=== PATIENT | female | born 1990 | race Caucasian/White ===

== ENCOUNTER 2020-01-03 05:13 | Inpatient (IN) ==
--- NOTE | 2020-01-03 05:34 | Obstetrical Progress Note ---
Date of Service January 03, 2020 Subjective Observation Note 29 F P0000 at 40.1 weeks seen in L&D to rule out labor. FHT Cat 1. Cervix finger tip. GBS is negative. Covid is negative. Will observe for labor.
[2020-01-03] MEDS ORDERED: OXYTOCIN 30 UNITS/500 ML BAG IV PRN ×2 (06:26→18:25)
--- NOTE | 2020-01-03 06:32 | Obstetrical Progress Note ---
Date of Service January 03, 2020 Subjective Admit Note 29 F P0000 at 40.1 weeks admitted in early labor. Cervix now 3/100/- 2/vertex/membranes intact. GBS is negative. Covid at 38 weeks negative. FHT Cat 1. Will admit in labor. Results & Data ([facility]) Vital Signs (Past 12 Hours) Vital Signs Temp Pulse Resp BP 01/03/20 05:24 36.7 C 74 18 131/85
[2020-01-03 06:53] LABS: Hematocrit (blood only) 35.5 % (37-47); Hemoglobin 12.1 g/dL (12.0-16.0); Mean Corpuscular Hemoglobin 29.7 pg (25-34); Mean Platelet Volume 10.7 fL (7.4-10.4); Platelet Count 181 K/uL (130-400); RDW Coefficient of Variation 13.2 % (11.5-14.5); RDW Standard Deviation 41.9 fL (36.4-46.3); Red Blood Count 4.08 M/uL (4.2-5.4); White Blood Count 14.24 K/uL (4.8-10.8)
[2020-01-03 07:44] LABS: Mean Corpuscular Hgb Conc 34.1 g/dL (32-36)
[2020-01-03] MEDS: LACTATED RINGER'S 1,000 ML IV PRN ×3 (09:59→12:53)
--- NOTE | 2020-01-03 10:13 | Obstetrical Progress Note ---
Date of Service January 03, 2020 Assessment & Plan Admission and Anticipated Discharge Date Admission Date: January 03, 2020 Subjective Pt doing well FHR; CAT1 Ctx 3-4min VE; 3/100/-2 Pt wants epidural analgesia does not want Pitocin started now wants to rest - because she has not slept in 2 days Results & Data ([facility]) Vital Signs (Past 12 Hours) Vital Signs Temp Pulse Resp BP 01/03/20 07:31 18 01/03/20 07:23 36.7 C 20 01/03/20 07:06 74 152/82 H 01/03/20 07:05 36.7 C 01/03/20 05:24 36.7 C 74 18 131/85
[2020-01-03] MEDS ORDERED: ePHEDrine sulfate 50 MG/ML AMP ONE (10:26)
[2020-01-03] MEDS ORDERED: fentaNYL citrate 100 MCG/2 ML VIAL ONE (10:26)
[2020-01-03] MEDS ORDERED: BUPIVACAINE 0.25% 30 ML VIAL ONE (10:26)
[2020-01-03] MEDS ORDERED: fentaNYL 2MCG/ML ROPIVACAINE 1.25MG/ML 100 ML BAG EPI ONE (10:26)
--- NOTE | 2020-01-03 10:59 | Anesthesiology Consultation ---
Date of Service January 03, 2020 Assessment & Plan (1) Encounter for pre-operative examination: Chart Review Chart Review: Acceptable Risk for Labor Epidural Consults Requested none ASA ASA2 Proposed Anesthesia Anesthesia Type: Labor Epidural Risk / Benefits Reviewed With: PT / POA / Parent / Guardian, Accepts Plan and Informed Consent Obtained History Height/Weight Height: 5 ft 4 in Weight: 75.296 kg Allergies Allergy/AdvReac Type Severity Reaction Status Date / Time No Known Allergies Allergy Verified 01/03/20 05:38 Medications Home Medications Medication Instructions Recorded Confirmed Last Taken vit no.[id number]-xxomf 1 tab PO DAILY 01/03/20 01/03/20 01/02/20 18:00 [ Vitamin] Active Medications Generic Name Dose Route Start Last Admin Trade Name Freq PRN Reason Stop Dose Admin Lactated Ringer's 1,000 mls @ 125 mls/hr 01/03/20 06:26 01/03/20 10:54 Lr IV 01/05/20 06:25 999 mls/hr .Q8H PRN Administration L&D Protocol Protocol NPO Date Last Intake of Fluids: 01/03/20 Time Last Intake of Fluids: 10:56 Date Last Intake of Solids: 01/02/20 Time Last Intake of Solids: 22:00 Exercise / Class Metabolic Activity II 4-5 Yardwork/Stairs/Walk up hill Negative for chest pain or shortness of breath. Past Surgical History Surgical History [place] teeth removed Past Anesthesia History No Hx of Anesthesia Complications History of PONV No Hx of PONV Social History Smoking Status: Never smoker Do You Dip or Chew Tobacco: No Hx Alcohol Use: No Hx Substance Use: No Review of Systems Negative for chest pain or shortness of breath. Patient denies numbness, tingling or weakness in lower extremities. Patient denies history of abnormal bleeding or bleeding disorder. Patient denies active use of anticoagulants other than low dose aspirin. Physical Exam Vital Signs Last Vital Signs Temp 36.7 C 01/03/20 07:23 Pulse 76 01/03/20 10:42 Resp 20 01/03/20 10:30 BP 144/80 H 01/03/20 10:42 Constitutional not obese (gravid uterus) ENMT Mouth: no TMJ abnormality and oral opening not small Thyromental Distance: > or= 3.5 Finger Breadths Mallampati Class: II Neck normal visual inspection; neck extension not limited Respiratory normal respiratory effort Auscultation: lungs clear to auscultation bilaterally Cardiovascular Rate/Rhythm: regular rate and regular rhythm Heart Sounds: no murmur Neurologic moves all extremities Psychiatric Orientation: alert and oriented x 3 Testing Laboratory Results 01/03/20 06:38
[2020-01-03] MEDS ORDERED: ONDANSETRON INJ 2 MG/ML 2 ML VIAL IV PRN (11:59)
[2020-01-03] MEDS ORDERED: ePHEDrine sulfate 50 MG/ML AMP IV PRN (11:59)
[2020-01-03] MEDS ORDERED: fentaNYL 2MCG/ML ROPIVACAINE 1.25MG/ML 100 ML BAG EPI PRN (11:59)
[2020-01-03] MEDS ORDERED: diphenhydrAMINE 50 MG/ML VIAL IV PRN (11:59)
[2020-01-03] MEDS ORDERED: NALOXONE HCL 0.4 MG/1 ML VIAL/CARP IV PRN (11:59)
[2020-01-03] MEDS ORDERED: NALOXONE HCL 1 MG in SODIUM CHLORIDE 0.9% 1000ML 1,000 ML IV PRN (11:59)
[2020-01-03] MEDS ORDERED: miSOPROStoL 200 MCG TAB ONE (18:15)
[2020-01-03] MEDS ORDERED: HYDROCORTISONE ACETATE 25 MG SUPP PR PRN (18:25)
[2020-01-03] MEDS ORDERED: BENZOCAINE 20% AER SPR 82.5 GM CAN EXT PRN (18:25)
[2020-01-03] MEDS ORDERED: bisacodyL 10 MG SUPP PR PRN (18:25)
[2020-01-03] MEDS ORDERED: miSOPROStoL 200 MCG TAB PR ONE (18:25)
[2020-01-03] MEDS ORDERED: SUPERCREAM 0.870% 15 GM JAR EXT PRN (18:25)
[2020-01-03] MEDS ORDERED: ACETAMINOPHEN 325 MG TAB PO PRN (18:25)
[2020-01-03] MEDS ORDERED: DIPHTHERIA/TETANUS/PERTUSSIS 0.5 ML SYR/VIAL IM ONE (18:30)
--- NOTE | 2020-01-03 18:55 | Anesthesia Procedure Note ---
Date of Service January 03, 2020 Anesthesia Post Epidural Note Vital Signs Vital Signs: Temp Pulse Resp BP Pulse Ox 36.8 C 71 20 126/89 99 01/03/20 16:30 01/03/20 18:53 01/03/20 17:00 01/03/20 18:53 01/03/20 18:31 Notes Mental Status: alert / awake / arousable and participated in evaluation Nausea / Vomiting: adequately controlled Pain: adequately controlled Airway Patency, RR, SpO2: stable & adequate BP & HR: stable & adequate Hydration State: stable & adequate Neuraxial Anesthesia: was administered and sensory block is resolving Anesthetic Complications: no major complications apparent and Pt Satisfied with anesthetic care Epidural: Removed without complications and With tip intact Notes: Epidural site clean, dry and intact. No signs of edema, erythema or bruising at insertion site. Pt instructed to request anesthesia if she has residual lower extremity numbness or if she develops lower extremity pain or weakness, back pain or headache.
--- NOTE | 2020-01-03 20:50 | Delivery Summary ---
DATE OF OPERATION: 01/03/2020 The patient delivered a live infant male in occiput anterior presentation, was loose nuchal cord which was easily reduced. Delayed cord clamp was performed after 1 minute. Cord blood was obtained. Placenta spontaneously delivered. Inspection of the placenta shows a succenturiate looking placenta. This was suspected for ultrasound during the . Inspection of the perineum showed a second-degree midline laceration with a left labia tear, this all repaired in layers with 2-0 Vicryl and 3-0 Vicryl respectively. Rectal exam post repair showed good sphincter tone. No sutures are palpated in the rectum. Estimated blood loss is 450 mL. Baby and mother are doing well in recovery. All instruments were removed from the vagina and accounted for including sponges, needles, laps and retractors. I attest to the content of the Intraoperative Record and any orders documented therein. Any exceptions are noted below. MARTINAD
[2020-01-03] MEDS: DOCUSATE SODIUM 100 MG CAP PO SCH (21:43)
[2020-01-04] MEDS: IBUPROFEN 600 MG TAB PO PRN ×3 (03:38→16:24)
[2020-01-04 06:36] LABS: Hemoglobin 10.6 g/dL (12.0-16.0); Mean Corpuscular Hemoglobin 29.1 pg (25-34); Mean Corpuscular Hgb Conc 33.1 g/dL (32-36); Mean Corpuscular Volume 87.9 fL (80-100); Mean Platelet Volume 10.4 fL (7.4-10.4); Platelet Count 161 K/uL (130-400); RDW Coefficient of Variation 13.2 % (11.5-14.5); RDW Standard Deviation 42.4 fL (36.4-46.3); Red Blood Count 3.64 M/uL (4.2-5.4); White Blood Count 14.87 K/uL (4.8-10.8)
--- NOTE | 2020-01-04 09:00 | Obstetrical Progress Note ---
Date of Service January 04, 2020 Assessment & Plan (1) Normal course: PPD #1 pt doing well' no complaints anticipate disch tomorrow Subjective Ambulation: ambulating normally Voiding: no voiding problems Passing Gas:: Yes Diet Tolerance:: regular diet Lochia:: Small Feeding Type:: breast feeding Review of Systems All systems reviewed & are unremarkable except as noted in HPI & below Physical Exam Constitutional WD/WN, vitals as above well developed and well nourished Eyes PERRL, conjunctivae normal, anicteric sclerae Neck trachea midline, no thyromegaly Respiratory normal respiratory effort, lungs clear to auscultation Auscultation: no crackles, no rales and no wheezes Cardiovascular RRR, no murmur, no edema Gastrointestinal (Abdomen) normal bowel sounds, soft, nontender, no hepatosplenomegaly Uterus is below umbilicus Musculoskeletal no cyanosis or clubbing, extremities motor strength 5/5 Skin no rashes, warm and dry Neurologic patellar DTR's 2+ bilat, sensation intact Psychiatric A+Ox3, euthymic affect Genitourinary normal external appearance Results & Data ([facility]) Vital Signs (Past 12 Hours) Vital Signs Temp Pulse Resp BP 01/04/20 03:40 37 C 71 16 130/83 01/04/20 00:35 37 C 66 18 108/69 01/03/20 22:15 37 C 80 16 142/86 H
[2020-01-04] MEDS: PRENATAL VITAMIN 1 TAB PO SCH (09:41)
[2020-01-04] MEDS: FERROUS SULFATE 325 MG TAB PO SCH (09:41)
[2020-01-04] MEDS: DOCUSATE SODIUM 100 MG CAP PO SCH ×2 (09:41→20:32)
[2020-01-04] MEDS ORDERED: bisacodyL 5 MG TABEC PO SCH (20:00)
[2020-01-05 06:26] LABS: Hematocrit (blood only) 30.8 % (37-47); Hemoglobin 10.4 g/dL (12.0-16.0)
[2020-01-05] MEDS: PRENATAL VITAMIN 1 TAB PO SCH (09:22)
[2020-01-05] MEDS: FERROUS SULFATE 325 MG TAB PO SCH (09:22)
[2020-01-05] MEDS: DOCUSATE SODIUM 100 MG CAP PO SCH (09:23)
--- NOTE | 2020-01-05 09:23 | Obstetrical Progress Note ---
Date of Service January 05, 2020 Assessment & Plan Admission and Anticipated Discharge Date Admission Date: January 03, 2020 Subjective PPD#2 doing well tolerating diet ambulating well Physical Exam Constitutional: WD/WN, vitals as above comfortable abdomen soft and non- tender fundus firm no edema neg Dickson's for d/c Results & Data ([facility]) Vital Signs (Past 12 Hours) Vital Signs Temp Pulse Resp BP Pulse Ox 01/04/20 23:35 36.6 C 70 18 124/81 98 Laboratory Results Laboratory Results - last 72 hr 01/03/20 01/03/20 01/04/20 06:38 08:10 06:05 WBC 14.24 H 14.87 H RBC 4.08 L 3.64 L Hgb 12.1 10.6 L Hct 35.5 L 32.0 L MCV 87.0 87.9 MCH 29.7 29.1 MCHC 34.1 33.1 RDW Std Deviation 41.9 42.4 RDW Coeff of Sirena 13.2 13.2 Plt Count 181 161 MPV 10.7 H 10.4 SARS-CoV-2, RNA, NAAT NEGATIVE 01/05/20 05:55 WBC RBC Hgb 10.4 L Hct 30.8 L MCV MCH MCHC RDW Std Deviation RDW Coeff of Sirena Plt Count MPV SARS-CoV-2, RNA, NAAT
== END 2020-01-05 15:30 | disposition home or self-care (01) | DRG 807 ==
LOC: OPB 05:13 → 4S1 05:20 → 4S2 21:34

== ENCOUNTER 2023-02-02 00:32 | Inpatient (IN) ==
[2023-02-02] MEDS ORDERED: OXYTOCIN 30 UNITS/NSS 30 UNITS/500 ML BAG IV PRN ×2 (01:57→06:28)
[2023-02-02] MEDS ORDERED: LIDOCAINE 1% LOCAL 20 ML VIAL INFIL PRN (01:57)
[2023-02-02] MEDS ORDERED: PENICILLIN G POTASSIUM 6 MU in DEXTROSE 5% 250 ML IV STA (01:57)
[2023-02-02] MEDS: LACTATED RINGER'S 1,000 ML IV PRN ×2 (02:07→04:27)
--- NOTE | 2023-02-02 02:36 | History & Physical Report ---
Date of Service February 02, 2023 Assessment & Plan (1) : Plan Admit start antibiotics History of Present Illness Chief Complaint: onset of labor Primary Care Provider: Pablo Saravia MD 32 F P1001 at 39.4 weeks presents to L&D in labor. GBS is positive. Covid is positive from home test. Allergies Allergy/AdvReac Type Severity Reaction Status Date / Time No Known Allergies Allergy Verified 01/03/20 05:38 Home Medications Medication Instructions Recorded Confirmed Type vits no.124-ferrous fum 1 tab PO DAILY 01/03/20 02/02/23 History 27 mg iron-folic acid 800 mcg tablet ( Vitamin) Zafar-600 1 cap PO DAILY 02/02/23 02/02/23 History Patient History Medical History Scoliosis Surgical History [place] teeth removed Social History Smoking Status: Never smoker Second Hand Exposure: No; Do You Dip or Chew Tobacco: No; Hx Alcohol Use: No Hx Substance Use: No Preferred Language: Burmese Communication Ability: Effective 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 Review of Systems All systems reviewed & are unremarkable except as noted in HPI & below Physical Exam Constitutional: WD/WN, vitals as above Eyes: PERRL, conjunctivae normal, anicteric sclerae Respiratory: normal respiratory effort, lungs clear to auscultation Cardiovascular: RRR, no murmur, no edema Musculoskeletal: Extremities: extremities normal to inspection Skin: no rashes, warm and dry Neurologic: patellar DTR's 2+ bilat, sensation intact Psychiatric: A+Ox3, euthymic affect Genitourinary: Manual OB Exam: + cervical dilation 3 cm and 4 cm, + cervical effacement 70% and + station -2 OB Exam Monitor Tracing: + external FHT monitor used, + external uterine monitor used, + category I and + normal FHT variability Results & Data Vital Signs (Past 12 Hours) Vital Signs Temp Pulse Resp BP 02/02/23 01:02 37.0 C 18 02/02/23 00:55 37.0 C 77 18 119/80 Monitoring External Monitor Cat 1 (1) Weeks of gestation: 39 weeks Qualified Code(s): Z3A.39 - 39 weeks gestation of
[2023-02-02 03:16] LABS: Hematocrit (blood only) 35.8 % (37.0-47.0); Hemoglobin 12.4 g/dl (12.0-16.0); Mean Corpuscular Hemoglobin 29.7 pg (25.0-34.0); Mean Corpuscular Hgb Conc 34.6 g/dL (32.0-36.0); Mean Corpuscular Volume 85.6 fL (80.0-100.0); Mean Platelet Volume 10.8 fL (9.4-12.4); Platelet Count 167 K/uL (130-400); RDW Coefficient of Variation 12.7 % (11.5-14.5); RDW Standard Deviation 39.5 fL (36.4-46.3); Red Blood Count 4.18 M/uL (4.20-5.40); White Blood Count 11.05 K/ul (4.8-10.8)
[2023-02-02] MEDS ORDERED: ePHEDrine sulfate 50 MG/ML AMP ONE (03:21)
[2023-02-02] MEDS ORDERED: SODIUM CHLORIDE 0.9% PF INJ 10 ML VIAL ONE (03:21)
[2023-02-02] MEDS ORDERED: fentaNYL citrate PF 100 MCG/2 ML VIAL ONE (03:21)
[2023-02-02] MEDS ORDERED: LIDOCAINE 2%/EPINEPHRINE 1:200,000 20 ML PF ONE (03:22)
[2023-02-02] MEDS ORDERED: fentANYL 2 MCG/ML BUPIVacaine 0.125%-NSS 100ML BAG ONE (03:22)
[2023-02-02] MEDS ORDERED: BUPIVACAINE 0.25% PF 30 ML VIAL ONE (03:22)
[2023-02-02 04:01] LABS: Influenza A virus by PCR Negative (Neg); Influenza B virus by PCR Negative (Neg); RSV by PCR Negative (Neg)
[2023-02-02 04:14] LABS: SARS CoV2 RNA(COVID-19) Ceph POSITIVE (Negative)
[2023-02-02] MEDS ORDERED: NALOXONE HCL 0.4 MG/1 ML VIAL/CARP IV PRN (04:14)
[2023-02-02] MEDS ORDERED: BUPIVACAINE 0.25% PF 30 ML VIAL EPI PRN (04:14)
[2023-02-02] MEDS ORDERED: fentaNYL citrate PF 100 MCG/2 ML VIAL EPI PRN (04:14)
[2023-02-02] MEDS ORDERED: diphenhydrAMINE 50 MG/ML VIAL IV PRN (04:14)
[2023-02-02] MEDS ORDERED: BUPIVACAINE 0.25% PF 30 ML VIAL EPI STA (04:14)
[2023-02-02] MEDS ORDERED: NALOXONE HCL 1 MG in SODIUM CHLORIDE 0.9% 1,000 ML IV PRN (04:14)
[2023-02-02] MEDS ORDERED: ePHEDrine sulfate 50 MG/ML AMP IV PRN (04:14)
[2023-02-02] MEDS ORDERED: NALBUPHINE HCL 5 MG in SYRINGE 0 ML IV PRN (04:14)
[2023-02-02] MEDS ORDERED: fentaNYL citrate PF 100 MCG/2 ML VIAL EPI STA (04:14)
[2023-02-02] MEDS ORDERED: ONDANSETRON INJ 2 MG/ML 2 ML VIAL IV PRN (04:14)
[2023-02-02] MEDS ORDERED: SODIUM CHLORIDE 0.9% PF INJ 10 ML VIAL EPI PRN (04:14)
[2023-02-02] MEDS ORDERED: fentANYL 2 MCG/ML BUPIVacaine 0.125%-NSS 100ML BAG EPI PRN (04:14)
[2023-02-02] MEDS ORDERED: LIDOCAINE 2%/EPINEPHRINE 1:200,000 20 ML PF EPI STA (04:14)
[2023-02-02] MEDS ORDERED: SODIUM CHLORIDE 0.9% PF INJ 10 ML VIAL EPI STA (04:14)
[2023-02-02] MEDS ORDERED: ROPIVACAINE 0.5% PF 5 MG/ML 20 ML VIAL EPI PRN (04:14)
[2023-02-02] MEDS ORDERED: LIDOCAINE 2% MPF LOCAL 5 ML VIAL EPI PRN (04:14)
--- NOTE | 2023-02-02 04:14 | Anesthesiology Consultation ---
Date of Service February 02, 2023 Assessment & Plan ASA ASA2 Proposed Anesthesia Anesthesia Type: Labor Epidural Risk / Benefits Reviewed With: PT / POA / Parent / Guardian, Accepts Plan and Informed Consent Obtained History Height/Weight Height: 5 ft 4.5 in Weight: 75.3 kg Allergies Allergy/AdvReac Type Severity Reaction Status Date / Time No Known Allergies Allergy Verified 01/03/20 05:38 Medications Home Medications Medication Instructions Recorded Confirmed Last Taken vits no.124-ferrous fum 1 tab PO DAILY 01/03/20 02/02/23 02/01/23 10:00 27 mg iron-folic acid 800 mcg tablet ( Vitamin) Zafar-600 1 cap PO DAILY 02/02/23 02/02/23 02/01/23 10:00 Active Medications Generic Name Dose Route Start Last Admin Trade Name Freq PRN Reason Stop Dose Admin Fentanyl/Bupivacaine/Sodium Chlor 100 ml 02/02/23 04:14 02/02/23 04:39 Fentanyl 2 Mcg/Ml Bupivacaine 0.125%-Nss 100ml Bag EPI 02/03/23 04:13 100 ml PRN PRN Administration Pain R/T Labor Protocol Lactated Ringer's 1,000 mls @ 125 mls/hr 02/02/23 01:57 02/02/23 04:27 Lr IV 02/04/23 01:56 125 mls/hr .Q8H PRN Administration L&D Protocol Protocol Past Medical History Medical History Scoliosis Exercise / Class Metabolic Activity II 4-5 Yardwork/Stairs/Walk up hill Past Surgical History Surgical History [place] teeth removed Past Anesthesia History No Hx of Anesthesia Complications and No Family Hx of Anesthesia Complications History of PONV No Hx of PONV and No Hx of Motion Sickness Social History Smoking Status: Never smoker Do You Dip or Chew Tobacco: No Hx Alcohol Use: No Hx Substance Use: No Review of Systems denies fever/cough/ colds/ chest pain/ SOB/ MELISSA denies MELISSA Physical Exam Vital Signs Last Vital Signs Temp 37.0 C 02/02/23 01:02 Pulse 85 02/02/23 04:46 Resp 18 02/02/23 01:02 BP 114/75 02/02/23 04:46 Pulse Ox 98 02/02/23 04:43 ENMT Mouth: no TMJ abnormality and no dentition abnormality Thyromental Distance: > or= 3.5 Finger Breadths Mallampati Class: II Neck neck extension not limited Respiratory normal respiratory effort; no respiratory distress Auscultation: lungs clear to auscultation bilaterally Cardiovascular Rate/Rhythm: regular rate and regular rhythm Neurologic moves all extremities Psychiatric Orientation: alert and oriented x 3 Testing Laboratory Results 02/02/23 02:43
[2023-02-02] MEDS ORDERED: PENICILLIN G POTASSIUM 3 MU in DEXTROSE 5% 100 ML IV PRN (04:57)
[2023-02-02] MEDS ORDERED: HYDROCORTISONE ACETATE 25 MG SUPP PR PRN (06:28)
[2023-02-02] MEDS ORDERED: IBUPROFEN 600 MG TAB PO PRN (06:28)
[2023-02-02] MEDS ORDERED: DIPHTHERIA/TETANUS/PERTUSSIS Vaccine (Tdap, Age 7+yrs) 0.5mL SYR/VL IM ONE (06:28)
[2023-02-02] MEDS ORDERED: BENZOCAINE 20% SPRY 85 APPLN/85 GM CAN EXT PRN (06:28)
[2023-02-02] MEDS ORDERED: ACETAMINOPHEN 325 MG TAB PO PRN (06:28)
[2023-02-02] MEDS ORDERED: bisacodyL 10 MG SUPP PR PRN (06:28)
--- NOTE | 2023-02-02 06:31 | Delivery Summary ---
Vaginal Delivery Summary Date of Service February 02, 2023 Vaginal Delivery Summary live female NACHO over intact perineum with delayed cord clamping and Apgars 8/9 weight pending. Cord blood obtained followed by spontaneous delivery of intact placenta. Small first degree tear repaired with 3/0 Vicryl suture. EBL 100 ml. Final sponge, needle and instrument count are correct. Mom and baby stable.
[2023-02-02] MEDS ORDERED: PRENATAL VITAMIN 1 TAB PO SCH (08:00)
--- NOTE | 2023-02-02 08:27 | Anesthesia Procedure Note ---
Date of Service February 02, 2023 Anesthesia Post Epidural Note Vital Signs Vital Signs: Temp Pulse Resp BP Pulse Ox 98.2 F 72 18 115/67 95 02/02/23 04:55 02/02/23 08:26 02/02/23 04:55 02/02/23 08:26 02/02/23 06:38 Notes Mental Status: alert / awake / arousable and participated in evaluation Nausea / Vomiting: adequately controlled Pain: adequately controlled Airway Patency, RR, SpO2: stable & adequate BP & HR: stable & adequate Hydration State: stable & adequate Neuraxial Anesthesia: was administered and sensory block is resolving Anesthetic Complications: no major complications apparent and Pt Satisfied with anesthetic care Epidural: Removed without complications and With tip intact
[2023-02-02] MEDS: DOCUSATE SODIUM 100 MG CAP PO SCH ×2 (08:36→21:18)
[2023-02-02] MEDS: PRENATAL VITAMIN 1 TAB PO SCH (08:36)
[2023-02-02] MEDS: FERROUS SULFATE 325 MG TAB PO SCH (08:36)
[2023-02-02] MEDS: CALCIUM CARBONATE 1250MG TAB PO SCH (08:36)
[2023-02-03 06:16] LABS: Hematocrit (blood only) 31.8 % (37.0-47.0); Mean Corpuscular Hemoglobin 30.1 pg (25.0-34.0); Mean Corpuscular Hgb Conc 34.6 g/dL (32.0-36.0); Mean Corpuscular Volume 86.9 fL (80.0-100.0); Mean Platelet Volume 10.6 fL (9.4-12.4); Platelet Count 153 K/uL (130-400); RDW Coefficient of Variation 12.6 % (11.5-14.5); Red Blood Count 3.66 M/uL (4.20-5.40); White Blood Count 9.53 K/ul (4.8-10.8)
[2023-02-03] MEDS: PRENATAL VITAMIN 1 TAB PO SCH (08:17)
[2023-02-03] MEDS: DOCUSATE SODIUM 100 MG CAP PO SCH (08:17)
[2023-02-03] MEDS: FERROUS SULFATE 325 MG TAB PO SCH (08:17)
[2023-02-03] MEDS: CALCIUM CARBONATE 1250MG TAB PO SCH (08:17)
--- NOTE | 2023-02-03 08:30 | Obstetrical Progress Note ---
Date of Service February 03, 2023 Assessment & Plan Admission and Anticipated Discharge Date Admission Date: February 02, 2023 Subjective Patient is seen and examined. She feels well, no complaints. Ambulating without dizziness Voiding without difficulty Tolerating regular diet with out N&V Bleeding is minimal No fever/ chills/ CP/ SOB/ N&V/ Leg pain Mild COVID symptoms, declines meds Breast feeding without problems Vital Signs Temp Pulse Resp BP Pulse Ox O2 Del Method 02/03/23 03:40 36.6 C 67 18 111/86 95 Room Air 02/03/23 00:25 36.6 C 78 20 127/86 96 Room Air 02/02/23 21:40 Room Air 02/02/23 21:40 36.9 C 71 18 122/84 97 Room Air 02/02/23 14:30 36.7 C 76 18 123/83 96 Room Air 02/02/23 09:45 36.4 C L 67 18 125/86 99 Room Air Intake and Output 02/02/23 02/03/23 02/03/23 22:59 06:59 14:59 Intake Total 1000 / 1500 Balance 1000 / 1400 Intake: IV 1000 / 1500 Lactated Ringer's 1,000 ml @ 1000 / 1000 125 mls/hr IV .Q8H PRN Rx#: [id number] Lab Results 02/02/23 02/02/23 02/03/23 Range/Units 02:43 03:12 05:30 WBC 11.05 H 9.53 (4.8-10.8) K/ul RBC 4.18 L 3.66 L (4.20-5.40) M/uL Hgb 12.4 11.0 L (12.0-16.0) g/dl Hct 35.8 L 31.8 L (37.0-47.0) % MCV 85.6 86.9 (80.0-100.0) fL MCH 29.7 30.1 (25.0-34.0) pg MCHC 34.6 34.6 (32.0-36.0) g/dL RDW Std Deviation 39.5 40.0 (36.4-46.3) fL RDW Coeff of Sirena 12.7 12.6 (11.5-14.5) % Plt Count 167 153 (130-400) K/uL MPV 10.8 10.6 (9.4-12.4) fL SARS-CoV-2 (PCR) POSITIVE A* (Negative) Influenza Type A (PCR) Negative (Neg) Influenza Type B (PCR) Negative (Neg) RSV (RT-PCR) Negative (Neg) PE: General: Alert, orientedx3, NAD Abd: soft, NT, fundus firm, below Umbilicus Perineum intact, Lochia rubra minimal Ext; NT, no edema AP: 32 yo s/p , ppd# 1 VSS Afebrile doing well Continue routine care Desires d/c today All questions were answered D/C home , f/u in office Results & Data Vital Signs (Past 12 Hours) Vital Signs Temp Pulse Resp BP Pulse Ox O2 Del Method 02/03/23 03:40 36.6 C 67 18 111/86 95 Room Air 02/03/23 00:25 36.6 C 78 20 127/86 96 Room Air 02/02/23 21:40 Room Air 02/02/23 21:40 36.9 C 71 18 122/84 97 Room Air
--- OUTSIDE RECORDS SUMMARY | 2023-02-03 18:04 | External Medical Summary | Summary of Care ---
Author Name Unknown Organization [facility] Address [address] [place] [address] Phone [phone] Care Team Providers Care Business Services Administrator Name Role Phone Froilan Christianson DO Primary Care Provider [phone] Reason for Visit * Reason Comments Return Visit Encounter Details Date Type Department Care Team (Latest Contact Info) Description 01/22/2023 11:30 AM EST Office Visit Gynecology/Obstetric s [facility] [address] [place] [address] Elva Fox PA-C [address] [place] [address] Normal in third trimester*; Family history of congenital anomaly; Marginal insertion of umbilical cord affecting management of mother; 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 0 Active documented as of this encounter (statuses as of 01/22/2023) Active Problems Problem Noted Date Diagnosed Date Carrier of group B Streptococcus 01/10/2023 Marginal insertion of umbili roel cord affecting management of mother 09/18/2022 Overview: 3rd trimester growth US Normal 06/26/2022 Family history of congenital anomaly 06/26/2022 Overview: Son cleft lip Rosacea 05/01/2022 Dyslipidemia 01/09/2022 Estimated Date of Delivery Comme nts Yes 02/05/2023 Based on last me nstrual period of 05/01/2022 (Exact Date) documented as of this encounter (statuses as of 01/22/2023) Resolved Problems Problem Noted Date Diagnosed Date Resolved Date Low-lying placenta 09/21/2022 3 Placenta succenturiata, unspecified trimester 09/05/19 20 02/10/2020 Overview: 10/17/19 ultrasound IMPRESSION 1. Normal MIKE. 2. Vertex presentation. 3. Probable succenturiate lobe of the placenta 09/05/19 ultrasound "It is uncertain if placenta is bilobed with thin band of tissue connecting the anterior and fundal placental tissue versus succenturiate placenta." Encounter for supervision of normal 08/22/1902/10/2020 Last Assessment & Plan: Tdap given today 10/17/2019 Sandra Chadwick LPN documented as of this encounter (statuses as of 01/22/2023) Immunizations Name Administration Dates Next Due COVID-19 mRNA, LNP-s, No Pre serve, 2-Dose Series (Moderna) 07/20/2020,06/22/2020 COVID-19, mRNA, LNP-s, PF, B ooster, 100mcg/0.5mg (Moderna) 03/22/2021 SEASONAL INFLUENZA, PF, 6 M & Above, IM , (FLULAVAL or FLUZONE) 01/08/2023,01/09/2022,01/02/2018 Seasonal Influenza, Quadriva lent, No Preserve, IM 12/19/2019 TDAP (age 10 and older)(Boostrix) 11/21/2022, documented as of this encounter Social History Tobacco Use Types Packs/Day Years Used Date Smoking Tobacco: Never Smokeless Tobacco: Never Alcohol Use Standard Drinks/Week Comments Yes 0 (1 standard drink = 0.6 oz pur e alcohol) social drinker PHQ-2 Answer Date Recorded PHQ-2 Score 0 01/30/2019 Hunger Vital Sign Answer Date Recorded Within the past 12 months, y ou worried that your food would run out before you got the money to buy more. Never true 06/27/19 23 Within the past 12 months, t he food you bought just didn't last and you didn't have money to get more. Never true 06/26/2022 Mcgill Depression Scale Answer Date Recorded Mcgill Depression Scale Total 1 12/22/2022 The thought of harming myself has occurred to me . Never 12/22/2022 Estimated Date of Delivery Comme nts Yes 02/05/2023 Based on last me nstrual period of 05/01/2022 (Exact Date) Sex and Gender Information Value Date Recorded Sex Assigned at Female 06/26/2022 10:10 AM EDT Gender Identity Female 06/26/2022 10:10 AM EDT Sexual Orientation Straight 06/26/2022 10 :10 AM EDT Job Start Date Occupation Industry Not on file Not on file Not on file documented as of this encounter Last Filed Vital Signs Vital Sign Reading Time Taken Comments Blood Pressure 100/60 01/22/2023 11:18 AM EST Pulse - - Temperature - - Respiratory Rate - - Oxygen Saturation - - Inhaled Oxygen Concentration - - Weight 76.4 kg (168 lb 6.4 oz) 01/22/2023 11:18 AM EST Height 163.8 cm (5' 4.5") 01/22/2023 11:18 AM ES T Body Mass Index 28.46 01/22/2023 11:18 AM EST documented in this encounter Progress Notes * Elva Fox PA-C - 01/22/2023 11:51 AM EST 38w0d Doing well. Had maybe 1 contractions while sleep a few nights ago. Otherwise nothing since. Denies bleeding, leaking. Baby is moving well. Reviewed IOL for postdates, pt would like time to decide. Labor precautions reviewed. RTC in 1 weeks Elva Fox PA-C * Adrianne Walters LPN - 01/22/2023 11:22 AM EST 38w0d Pt denies any concerns documented in this encounter Plan of Treatment Upcoming Encounters Date Type Department Care Team (Late st Contact Info) Description 01/30/2023 8:45 AM EST Office Visit Gynecology/Obstetrics [facility] [address] [place] [address] Melvin Santamaria MD [address] [place] [phone] 02/05/2023 9:15 AM EST Office Visit Gynecology/Obstetrics [facility] [address] [place] [address] Elva Fox PA-C [address] [place] [address] Health Maintenance Due Date Last Done Comments Hepatitis B (1 of 3 - 3-dose series) 1989 HPV/Co-Test 08/04/2019 Depression Screening 01/31/2020 01/30/2019 COVID-19 Vaccine ( season) 2022 03/22/2021, 07/20/2020, 06/22/2020 Cervical Cancer Screening 09/02/2024 Pap Smear 09/02/2024 09/02/2021, 01/17, 01/01/2017 DTaP,Tdap,and Td Vaccines (3 - Td or Tdap) 11/21/2032 11/21/2022, 10/17/2019 Influenza Vaccine (FLU shot) Completed , 01/09/2022, 12/19/2019, Additional history exists GARDASIL-HPV IMMUNIZATION SERIES Aged Out No longer eligible based on patient's age to complete this topic MENINGOCOCCAL (MENACTRA/MENVEO) Aged Out No longer eligible based on patient's age to complete this topic Pneumococcal Vaccine: Pediatrics (0 to 5 Years) and At-Risk Patients (6 to 64 Years) Aged Out No longer eligible based on patient's age to complete this topic documented as of this encounter Medical Devices Not on filedocumented as of this encounter Visit Diagnoses Diagnosis Normal in third trimester- Primary Family history of congenital anomaly Family history of congenital anomalies Marginal insertion of umbilical cord affecting management of mother Carrier of group B Streptococcus Carrier or suspected carrier of Group B streptococcus documented in this encounter Care Teams Business Services Administrator Relationship Specialty Start Date End Date Froilan Christianson DO PCP - General Family Medicine 05/02/22 documented as of this encounter
--- OUTSIDE RECORDS SUMMARY | 2023-02-03 18:04 | External Medical Summary | Summary of Care ---
Author Name Unknown Organization [facility] Address [address] [facility] [place] [address] Phone [phone] Care Team Providers Care Blood Tester Name Role Phone Froilan Christianson DO Primary Care Provider [phone] Reason for Visit * Reason Onset Date Comments Forms Request 12/01/2022 Encounter Details Date Type Department Care Team Description 12/01/2022 Telephone [facility] [address] [place] [address] Emma Deras CRNP [address] [place] [address] Forms Request Allergies No known active allergiesdocumented as of this encounter (statuses as of 12/01/2022) Medications Medication Sig Dispensed Refills Start Date End Date Status Vitamin/Min +DHA 27-0.8-200 MG Oral Capsule Take by mouth. 0 Active documented as of this encounter (statuses as of 12/01/2022) Active Problems Problem Noted Date Marginal insertion of umbilical cord aff ecting management of mother 09/18/2022 Overview: 3rd trimester growth US Normal 06/26/2022 Family history of congenital anomaly 12/2022 Overview: Son cleft lip Rosacea 05/01/2022 Dyslipidemia 01/09/2022 Estimated Date of Delivery Comme nts Yes 02/05/2023 Based on last me nstrual period of 05/01/2022 (Exact Date) documented as of this encounter (statuses as of 12/01/2022) Resolved Problems Problem Noted Date Resolved Date Low-lying placenta 09/21/2022 10/20/2022 Placenta succenturiata, unspecified trimester 02/10/2020 Overview: 10/17/19 ultrasound IMPRESSION 1. Normal MIKE. 2. Vertex presentation. 3. Probable succenturiate lobe of the placenta 09/05/19 ultrasound "It is uncertain if placenta is bilobed with thin band of tissue connecting the anterior and fundal placental tissue versus succenturiate placenta." Encounter for supervision of normal 02/10/2020 Last Assessment & Plan: Tdap given today 10/17/2019 Sandra Chadwick LPN documented as of this encounter (statuses as of 12/01/2022) Immunizations Name Administration Dates Next Due COVID-19 mRNA, LNP-s, No Pre serve, 2-Dose Series (Moderna) 07/20/2020,06/22/2020 COVID-19, mRNA, LNP-s, PF, B ooster, 100mcg/0.5mg (Moderna) 03/22/2021 Seasonal Influenza, PF, 6 mo ns & Above, IM , (Flulaval) 01/09/2022,01/02/2018 Seasonal Influenza, Quadrivalent, No Preserve, I M 12/19/2019 TDAP (age 10 and older)(Boostrix) 11/21/2022, documented as of this encounter Social History Tobacco Use Types Packs/Day Years Used Date Smoking Tobacco: Never Smokeless Tobacco: Never Alcohol Use Standard Drinks/Week Comments Yes 0 (1 standard drink = 0.6 oz pur e alcohol) social drinker Food Insecurity Answer Date Recorded Within the past 12 months, y ou worried that your food would run out before you got money to buy more. Never true 06/26/2022 Within the past 12 months, t he food you bought just didn't last and you didn't have money to get more. Never true 06/26/2022 Estimated Date of Delivery Comme nts Yes 02/05/2023 Based on last me nstrual period of 05/01/2022 (Exact Date) Sex Assigned at Date Recorded Female 06/26/2022 10:10 AM EDT Job Start Date Occupation Industry Not on file Not on file Not on file documented as of this encounter Miscellaneous Notes * Telephone Encounter - Libia Brumfield LPN - 12/01/2022 9:19 AM EDT FMLA complete. Originals in triage. documented in this encounter Plan of Treatment Upcoming Encounters Date Type Specialty Care Team Description 12/06/2022 Imaging Radiology 12/06/2022 Office Visit Gynecology Obstetrics Elva Fox PA-C [address] [place] [address] Health Maintenance Due Date Last Done Comments Hepatitis B (1 of 3 - 3-dose series) 1989 HPV/Co-Test 08/04/2019 Depression Screening 01/31/2020 01/30/2019 COVID-19 Vaccine (4 - Moderna series) 05/17/2021 03/22/2021, 07/20/2020, 06/22/2020 Influenza Vaccine (FLU shot) (#1) 2022 01/09/2022, 12/19/2019, 01/02/2018, Additional history exists Cervical Cancer Screening 09/02/2024 Pap Smear 09/02/2024 09/02/2021, 01/17, 01/01/2017 DTaP,Tdap,and Td Vaccines (3 - Td or Tdap) 11/21/2032 11/21/2022, 10/17/2019 Hepatitis C Screening Completed 06/26/2022 , 06/26/2022, 06/26/2022 GARDASIL-HPV IMMUNIZATION SERIES Aged Out No longer [...] Not on filedocumented as of this encounter Care Teams Blood Tester Relationship Specialty Start Date End Date Froilan Christianson DO [address] [place] [address] PCP - General Family Medicine 05/02/22 documented as of this encounter
--- OUTSIDE RECORDS SUMMARY | 2023-02-03 18:04 | External Medical Summary | Summary of Care ---
Author Name Unknown Organization [facility] Address [address] [facility] [place] [address] Phone [phone] Care Team Providers Care Sleeper Cutter Name Role Phone Froilan Christianson DO Primary Care Provider Reason for Visit * Reason Onset Date Comments Return Visit Medication Administration 01/08/2023 Flu an d/or Pneumo Inj Encounter Details Date Type Department Care Team (Late st Contact Info) Description 01/08/2023 10:15 AM EDT Office Visit [facility]necology/[facility]st[facility] [address] [place] [address] Emma Deras CRNP [address] [place] [address] Normal in third trimester*; Marginal insertion of umbilical cord affecting management of mother; Family history of congenital anomaly; Need for prophylactic vaccination and inoculation against influenza Allergies No known active allergiesdocumented as of this encounter (statuses as of 01/08/2023) Medications Medication Sig Dispensed Refills Start Date End Date Status Vitamin/Min +DHA 27-0.8-200 MG Oral Capsule Take by mouth. 0 Active documented as of this encounter (statuses as of 01/08/2023) Active Problems Problem Noted Date Diagnosed Date Marginal insertion of umbili roel cord affecting management of mother 09/18/2022 Overview: 3rd trimester growth US Normal 06/26/2022 Family history of congenital anomaly 06/26/2022 Overview: Son cleft lip Rosacea 05/01/2022 Dyslipidemia 01/09/2022 Estimated Date of Delivery Comme nts Yes 02/05/2023 Based on last me nstrual period of 05/01/2022 (Exact Date) documented as of this encounter (statuses as of 01/08/2023) Resolved Problems Problem Noted Date Diagnosed Date Resolved Date Low-lying placenta 09/21/2022 Placenta succenturiata, unspecified trimester 09/05/19 20 02/10/2020 [...] as of this encounter (statuses as of 01/08/2023) Immunizations Name Administration Dates Next Due COVID-19 [...] money to buy more. Never true 06/27/19 Within the past 12 months, t he food you bought just didn't last and you didn't have money to get more. Never true 06/26/2022 [place] Depression Scale Answer Date Recorded [place] Depression Scale Total 1 12/22/2022 The thought [...] Reading Time Taken Comments Blood Pressure 100/60 01/08/2023 10:09 AM EDT Pulse - - Temperature - - Respiratory Rate - - Oxygen Saturation - - Inhaled Oxygen Concentration - - Weight 74.9 kg (165 lb 3.2 oz) 01/08/2023 10:09 AM EDT Height 163.8 cm (5' 4.5") 01/08/2023 10:09 AM ED T Body Mass Index 27.92 01/08/2023 10:09 AM EDT documented in this encounter Progress Notes * EMILE Rodriguez - 01/08/2023 10:31 AM EDT 36w Noticing some swelling in hands, some pain in hands over the weekend. No other concerns. Baby is active. No contractions, bleeding, or LOF. Flu vaccine today. GBS done. Rustic Fence Builder Documentation Provider requested funds transfer clerk. Name of funds transfer clerk: EMILE Chamorro * Adrianne Walters LPN - 01/08/2023 10:15 AM EDT 36w0d Pt has noticed increase swelling in hands/feet, soreness in hands. GBS today. Desires flu shot today. documented in this encounter Nursing Notes * Ardianne Walters LPN - 01/08/2023 10:34 AM EDT Patient here for flu injection. Patient doing well no complaints. Injection given IM as ordered. Patient tolerated well. Patient to follow up as directed. Patient instructed to call if any complications. Patient verbalized understanding of instructions given. Injection site: Left Deltoid Medication Source: Dispensed stock medication documented in this encounter Plan of Treatment Upcoming Encounters Date Type Department Care Team (Late st Contact Info) Description 01/15/2023 10:15 AM EDT Office Visit Gynecology/Obstetrics [facility] [address] [place] [address] Emma Deras CRNP [address] [place] [address] 01/22/2023 11:30 AM EST Office Visit Gynecology/Obstetrics [facility] [address] [place] [address] Elva Fox PA-C [address] [place] [address] 01/30/2023 8:45 AM EST Office Visit Gynecology/Obstetrics [facility] [address] [place] [address] Melvin Santamaria MD [address] [place] [address] 02/05/2023 9:15 AM EST Office Visit Gynecology/Obstetrics [facility] [address] [place] [address] Elva Fox PA-C [address] [place] [address] Pending Results Name Type Priority Associated Diagnoses Date /Time GROUP B STREP CULTURE/PCR Lab Routine Normal in third trimester 01/08/2023 10:34 AM EDT Health Maintenance Due Date Last Done Comments [...] Diagnoses Diagnosis Normal in third trimester- Primary Marginal insertion of umbilical cord affecting management of mother Family history of congenital anomaly Family history of congenital anomalies Need for prophylactic vaccination and inoculation against influenza documented in this encounter Care Teams Sleeper Cutter Relationship Specialty Start Date End Date Froilan Christianson DO [address] [place] [address] PCP - General Family Medicine 05/02/22 documented as of this encounter
--- OUTSIDE RECORDS SUMMARY | 2023-02-03 18:04 | External Medical Summary | Summary of Care ---
Author Name Unknown Organization [facility] Address [address] [facility] [address] [place] [address] Phone [phone] Care Team Providers Care Sr. Consultant Name Role Phone Froilan Christianson DO Primary Care Provider [phone] Reason for Visit * Reason Comments Return Visit Encounter Details Date Type Department Care Team (Latest Contact Info) Description 01/15/2023 10:15 AM EDT Office Visit Gynecology/Obstetric s [facility] [address] [place] [address] Emma Deras CRNP [address] [place] [address] Normal in third trimester*; Family history of congenital anomaly; Marginal insertion of umbilical cord affecting management of mother; Carrier of group B Streptococcus Allergies No known active allergiesdocumented as of this encounter (statuses as of 01/15/2023) Medications Medication Sig Dispensed Refills Start Date End Date Status Vitamin/Min +DHA 27-0.8-200 MG Oral Capsule Take by mouth. 0 Active documented as of this encounter (statuses as of 01/15/2023) Active Problems Problem Noted Date Diagnosed Date [...] as of this encounter (statuses as of 01/15/2023) Resolved Problems Problem Noted Date Diagnosed Date [...] as of this encounter (statuses as of 01/15/2023) Immunizations Name Administration Dates Next Due COVID-19 [...] money to get more. Never true 06/26/2022 [place] Depression Scale Answer Date Recorded [place] Depression Scale Total 1 12/22/2022 The thought [...] Sign Reading Time Taken Comments Blood Pressure 100/58 01/15/2023 10:20 AM EDT Pulse - - Temperature - - Respiratory Rate - - Oxygen Saturation - - Inhaled Oxygen Concentration - - Weight 75.8 kg (167 lb) 01/15/2023 10:20 AM EDT Height 163.8 cm (5' 4.5") 01/15/2023 10:20 AM ED T Body Mass Index 28.22 01/15/2023 10:20 AM EDT documented in this encounter Progress Notes * Emma Deras CRNP - 01/15/2023 10:49 AM EDT 37w No concerns. Still with some swelling in hands. Baby is moving well. No contractions, bleeding, or LOF. EMILE Rodriguez * Adrianne Walters LPN - 01/15/2023 10:24 AM EDT 37w0d Pt denies any concerns. documented in this encounter Plan of Treatment Upcoming Encounters Date Type Department Care Team (Late st Contact Info) Description 01/22/2023 11:30 AM EST [facility] [address] [place] [address] Elva Fox PA-C [address] [place] [address] 01/30/2023 8:45 AM EST Office Visit Gynecology/Obstetrics [facility] [address] [place] [address] Melvin Santamaria MD [address] [place] [address] 02/05/2023 9:15 AM EST Office Visit Gynecology/Obstetrics [facility] [address] [place] [address] Elva Fox PA-C [address] [place] [address] Health Maintenance Due Date Last Done Comments [...] streptococcus documented in this encounter Care Teams Sr. Consultant Relationship Specialty Start Date End Date Froilan Christianson DO [address] [place] [address] PCP - General Family Medicine 05/02/22 documented as of this encounter
--- OUTSIDE RECORDS SUMMARY | 2023-02-03 18:04 | External Medical Summary ---
Author Name Unknown Address Unknown Organization K01:[facility] - [address] [facility] [address] Laboratory Report Ordering Provider Test Date Status JOHANA MCGINNIS 01/08/2023 10:34:06 Correction Observation Date Value Abnormality Reference (Units ) Status Streptococcus agalactiae DNA [Presence] in Specimen by FALLON with probe detection 01/08/2023 10:34:06 Positive Abnormal Negative Correction Group B Streptococcus detect ed by culture-enhanced PCR (amplified probe).

The collection of vaginal/rectal swab specimen combinations (FDA approved specimen type) is optimal for the detection of Group B Streptococcus. Single source collection (vaginal only or rectal only) or alternate specimen sources may lead to false negative results. Performing Location [facility] [place] - [address] [facility] [facility] [address]
--- OUTSIDE RECORDS SUMMARY | 2023-02-03 18:04 | External Medical Summary | Summary of Care ---
Author Name Unknown Organization [facility] Address [address] [facility] [place] [address] Phone [phone] Care Team Providers Care Protective Signal Repairer Name Role Phone Froilan Christianson DO Primary Care Provider [phone] Encounter Details Date Type Department Care Team (Late st Contact Info) Description 01/29/2023 Telephone Gynecology/Obstetrics [facility] [address] [place] [address] Jacob Leblanc MD [address] [place] [address] Allergies No known active allergiesdocumented as of this encounter (statuses as of 01/29/2023) Medications Medication Sig Dispensed Refills Start Date End Date Status Vitamin/Min +DHA 27-0.8-200 MG Oral Capsule Take by mouth. 0 Active documented as of this encounter (statuses as of 01/29/2023) Active Problems Problem Noted Date Diagnosed Date [...] as of this encounter (statuses as of 01/29/2023) Resolved Problems Problem Noted Date Diagnosed Date Resolved Date Low-lying placenta 09/21/2022 Placenta succenturiata, unspecified trimester 09/05/1902/10/2020 Overview: 10/17/19 ultrasound IMPRESSION 1. Normal MIKE. [...] as of this encounter (statuses as of 01/29/2023) Immunizations Name Administration Dates Next Due COVID-19 [...] money to get more. Never true 06/26/2022 [place] Depression Scale Answer Date Recorded [place] Depression Scale Total 1 12/22/2022 The thought [...] encounter Miscellaneous Notes * Telephone Encounter - Keturah Hinkle LPN - 01/29/2023 10:25 AM EST Pt calling in stating she got a + covid test today. States symptoms started last night. Only havingnasal drip. Denies fevers/chills. Reviewed with Nika for recommendation for coming into office. Advised bacause 39 weeks she would need to be seen. Advised pt to wear a mask, come alone, and to call when here so she can be brought back to a room. Pt verbalized understanding. Sending to [facility] avis SERRANO documented in this encounter Plan of Treatment Upcoming Encounters Date Type Department Care Team (Late st Contact Info) Description 01/30/2023 8:45 AM EST Office Visit Gynecology/Obstetrics [facility] [address] [place] [address] Melvin Santamaria MD [address] [place] [address] 02/05/2023 9:15 AM EST Office Visit Gynecology/Obstetrics [facility] [address] [place] [address] Elva Fox PA-C [address] [place] [address] Health Maintenance Due Date Last Done Comments [...] filedocumented as of this encounter Care Teams Protective Signal Repairer Relationship Specialty Start Date End Date Froilan Christianson DO PCP - General Family Medicine 05/02/22 documented as of this encounter
--- OUTSIDE RECORDS SUMMARY | 2023-02-03 18:04 | External Medical Summary | Summary of Care ---
Author Name Unknown Organization [facility] Address [address] [facility] [place] [address] Phone [phone] Care Team Providers Care Refinery Operator Assistant Name Role Phone Froilan Christianson DO Primary Care Provider [phone] Reason for Visit * Reason Onset Date Comments Forms Request 12/01/2022 Encounter Details Date Type Department Care Team Description 12/01/2022 Telephone [facility] [address] [place] [address] Emma Deras CRNP [address] [place] [address] Forms Request Allergies No known active allergiesdocumented [...] Fox PA-C [address] [place] [address] Health Maintenance Due Date Last Done Comments [...] filedocumented as of this encounter Care Teams Refinery Operator Assistant Relationship Specialty Start Date End Date Froilan Christianson DO [address] [place] [address] PCP - General Family Medicine 05/02/22 documented as of this encounter
--- OUTSIDE RECORDS SUMMARY | 2023-02-03 18:04 | External Medical Summary | Summary of Care ---
Author Name Unknown Organization [facility] Address [address] [facility] [place] [address] Phone [phone] Care Team Providers Care Sheet Metal Roofer Name Role Phone Froilan Christianson DO Primary Care Provider [phone] Reason for Visit * Reason Comments Outpatient Testing Encounter Details Date Type Department Care Team Description 11/21/2022 Laboratory Laboratory, [facility] [address] [facility] [place] [address] [facility] [address] [place] [address] Normal in second trimester Allergies No known active allergiesdocumented as of this encounter (statuses as of 11/21/2022) Medications Medication Sig Dispensed Refills Start Date End Date Status Vitamin/Min +DHA 27-0.8-200 MG Oral Capsule Take by mouth. 0 Active documented as of this encounter (statuses as of 11/21/2022) Active Problems Problem Noted Date Marginal insertion of umbilical cord aff ecting management of mother 09/18/2022 Overview: 3rd trimester growth US Normal 06/26/2022 Family history of congenital anomaly 12/2022 Overview: Son cleft lip Rosacea 05/01/2022 Dyslipidemia 01/09/2022 Estimated Date of Delivery Comme nts Yes 02/05/2023 Based on last me nstrual period of 05/01/2022 (Exact Date) documented as of this encounter (statuses as of 11/21/2022) Resolved Problems Problem Noted Date Resolved Date [...] as of this encounter (statuses as of 11/21/2022) Immunizations Name Administration Dates Next Due COVID-19 mRNA, LNP-s, No Pre serve, 2-Dose Series (Moderna) 07/20/2020,06/22/2020 Covid-19 Mrna, Lnp-s, No Preserve, Booster (Mode rna) 03/22/2021 Seasonal Influenza, PF, 6 mo ns [...] on file documented as of this encounter Plan of Treatment Upcoming Encounters Date Type Specialty Care Team Description 12/06/2022 Imaging Radiology 12/06/2022 Office Visit Gynecology Obstetrics Elva Fox PA-C [address] [place] [address] Pending Results Name Type Priority Associated Diagnoses Date /Time SYPHILIS ANTIBODY SCREEN WITH REFLEX TO RPR Lab Routine Normal in second trimester 11/21/2022 10:07 AM EDT CBC WITH WBC DIFFERENTIAL AND ANEMIA REFLEX WORKUP Lab Routine Normal in second trimester 11/21/2022 10:07 AM EDT 50-G GESTATIONAL GLUCOSE, 1 HOUR Lab Routine Normal in second trimester 11/21/2022 10:07 AM EDT SYPHILIS ANTIBODY SCREEN Lab Routine Normal in second trimester 11/21/2022 10:07 AM EDT ANEMIA CBC Lab Routine Normal in second trimester 11/21/2022 10:07 AM EDT DIFFERENTIAL, AUTOMATED Lab Routine Normal in second trimester 11/21/2022 10:07 AM EDT ANEMIA REFLEX CHEMISTRY HOLD Lab Routine Normal in second trimester 11/21/2022 10:07 AM EDT Health Maintenance Due Date Last Done Comments Hepatitis B (1 of 3 - 3-dose series) 1990 HPV/Co-Test 08/04/2019 Depression Screening, Annual for Pts 12 and Over 01/31/2020 01/30/2019 COVID-19 Vaccine (4 - Moderna [...] this encounter Visit Diagnoses Diagnosis Normal in second trimester documented in this encounter Care Teams Sheet Metal Roofer Relationship Specialty Start Date End Date Froilan Christianson DO [address] [place] [address] PCP - General Family Medicine 05/02/22 documented as of this encounter
--- OUTSIDE RECORDS SUMMARY | 2023-02-03 18:04 | External Medical Summary | Summary of Care ---
Author Name Unknown Organization [facility] Address [address] [facility] [place] [address] Phone [phone] Care Team Providers Care Power Plant Inspector Name Role Phone Unavailable Primary Care Provider Unavailabl e Reason for Visit * Reason Comments Return Visit Encounter Details Date Type Department Care Team (Latest Contact Info) Description 01/30/2023 4:00 PM EST Office Visit Gynecology/Obstetric s [facility] [address] [place] [address] Melvin Santamaria MD [address] [place] [address] Normal in third trimester*; Family history of congenital anomaly; Marginal insertion of umbilical cord affecting management of mother; Carrier of group B Streptococcus Allergies No known active allergiesdocumented as of this encounter (statuses as of 01/30/2023) Medications Medication Sig Dispensed Refills Start Date End Date Status Vitamin/Min +DHA 27-0.8-200 MG Oral Capsule Take by mouth. 0 Active documented as of this encounter (statuses as of 01/30/2023) Active Problems Problem Noted Date Diagnosed Date [...] as of this encounter (statuses as of 01/30/2023) Resolved Problems Problem Noted Date Diagnosed Date Resolved Date Low-lying placenta 09/21/2022 3 Placenta succenturiata, unspecified trimester 09/05/1902/10/2020 Overview: 10/17/19 [...] as of this encounter (statuses as of 01/30/2023) Immunizations Name Administration Dates Next Due COVID-19 [...] money to get more. Never true 06/26/2022 [place] Depression Scale Answer Date Recorded [place] Depression Scale Total 1 12/22/2022 The thought [...] Sign Reading Time Taken Comments Blood Pressure 104/72 01/30/2023 3:54 PM EST Pulse - - Temperature - - Respiratory Rate - - Oxygen Saturation - - Inhaled Oxygen Concentration - - Weight 75.3 kg (166 lb) 01/30/2023 3:54 PM EST Height 163.8 cm (5' 4.5") 01/30/2023 3:54 PM EST Body Mass Index 28.05 01/30/2023 3:54 PM EST documented in this encounter Progress Notes * Melvin Santamaria MD - 01/30/2023 4:21 PM EST Pt doing well +ve COVID on 01/29/23 Symptoms started 01/28/23 [facility] for induction VE; Ft/post * Melvin Santamaria MD - 01/30/2023 4:07 PM EST Pt doing well +ve COVID dx 01/29/23 Symptoms started 02/27/23 [facility] for induction documented in this encounter Nursing Notes * Rafaela Santana LPN - 01/30/2023 3:57 PM EST 39w1d Covid + yesterday, doing okay. Had + home test. Agreeable to scheduling IOL. documented in this encounter Plan of Treatment Upcoming Encounters Date Type Department Care Team (Late st Contact Info) Description 02/05/2023 9:15 AM EST Office Visit Gynecology/Obstetrics [facility] [address] [place] [address] Elva Fox PA-C [address] [place] [address] Health Maintenance Due Date Last Done Comments [...]
--- OUTSIDE RECORDS SUMMARY | 2023-02-03 18:04 | External Medical Summary | Summary of Care ---
Author Name Unknown Organization [facility] Address [address] [facility] [place] [address] Phone [phone] Care Team Providers Care Research Associate Policy Name Role Phone Froilan Christianson DO Primary Care Provider Reason for Visit * Reason Comments Return Visit Encounter Details Date Type Department Care Team Description 12/22/2022 [facility] [address] [place] [address] Elva Fox PA-C [address] [place] [address] 33 weeks gestation of *; Normal in third trimester; Marginal insertion of umbilical cord affecting management of mother; Family history of congenital anomaly Allergies No known active allergiesdocumented as of this encounter (statuses as of 12/22/2022) Medications Medication Sig Dispensed Refills Start Date End Date Status Vitamin/Min +DHA 27-0.8-200 MG Oral Capsule Take by mouth. 0 Active documented as of this encounter (statuses as of 12/22/2022) Active Problems Problem Noted Date Marginal insertion of umbilical cord aff ecting management of mother 09/18/2022 Overview: 3rd trimester growth US Normal 06/26/2022 Family history of congenital anomaly 12/2022 Overview: Son cleft lip Rosacea 05/01/2022 Dyslipidemia 01/09/2022 Estimated Date of Delivery Comme nts Yes 02/05/2023 Based on last me nstrual period of 05/01/2022 (Exact Date) documented as of this encounter (statuses as of 12/22/2022) Resolved Problems Problem Noted Date Resolved Date [...] as of this encounter (statuses as of 12/22/2022) Immunizations Name Administration Dates Next Due COVID-19 mRNA, LNP-s, No Pre serve, 2-Dose Series (Moderna) 07/20/2020,06/22/2020 COVID-19, mRNA, LNP-s, PF, B ooster, 100mcg/0.5mg (Moderna) 03/22/2021 SEASONAL INFLUENZA, PF, 6 M & Above, IM , (FLULAVAL or FLUZONE) 01/09/2022,01/02/2018 Seasonal Influenza, Quadrivalent, No Preserve, I [...] Sign Reading Time Taken Comments Blood Pressure 84/54 12/22/2022 8:58 AM EDT Pulse - - Temperature - - Respiratory Rate - - Oxygen Saturation - - Inhaled Oxygen Concentration - - Weight 73 kg (161 lb) 12/22/2022 8:58 AM EDT Height 163.8 cm (5' 4.5") 12/22/2022 8:58 AM EDT Body Mass Index 27.21 12/22/2022 8:58 AM EDT documented in this encounter Progress Notes * Rafaela Ponce LPN - 12/22/2022 9:01 AM EDT 33w4d Denies concerns Would like flu shot at next visit. * Elva Fox PA-C - 12/22/2022 9:00 AM EDT 33w4d Denies concerns. Denies VB, LOF, contractions. Pos FM. Discussed flu vaccine, pt would like to complete with next visit. Reviewed GBS at 36 weeks. RTC in 2 weeks Elva Fox PA-C documented in this encounter Plan of Treatment Upcoming Encounters Date Type Specialty Care Team Description 01/08/2023 Office Visit Gynecology Obstetrics Emma Deras CRNP [address] [place] [address] 01/15/2023 Office Visit Gynecology Obstetrics Emma Deras CRNP [address] [place] [address] 01/22/2023 Office Visit Gynecology Obstetrics Elva Fox PA-C [address] [place] [address] 01/30/2023 Office Visit Gynecology Obstetrics Melvin Santamaria MD [address] [place] [address] 02/05/2023 Office Visit Gynecology Obstetrics Elva Fox PA-C [address] [place] [address] Health Maintenance Due Date Last Done Comments Hepatitis B (1 of 3 - 3-dose series) 1989 HPV/Co-Test 08/04/2019 Depression Screening 01/31/2020 01/30/2019 COVID-19 Vaccine ( season) 2022 03/22/2021, 07/20/2020, 06/22/2020 Influenza Vaccine (FLU shot) (#1) 2022 01/09/2022, 12/19/2019, 01/02/2018, Additional history exists Cervical Cancer Screening 09/02/2024 Pap Smear 09/02/2024 09/02/2021, 01/17, 01/01/2017 DTaP,Tdap,and Td Vaccines (3 - Td or Tdap) 11/21/2032 11/21/2022, 10/17/2019 GARDASIL-HPV IMMUNIZATION SERIES Aged Out No longer [...] as of this encounter Visit Diagnoses Diagnosis 33 weeks gestation of - Primary state, incidental Normal in third trimester Marginal insertion of umbilical cord affecting management of mother Family history of congenital anomaly Family history of congenital anomalies documented in this encounter Care Teams Research Associate Policy Relationship Specialty Start Date End Date Froilan Christianson DO [address] [place] [address] PCP - General Family Medicine 05/02/22 documented as of this encounter
--- OUTSIDE RECORDS SUMMARY | 2023-02-03 18:04 | External Medical Summary | Summary of Care ---
Author Name Unknown Organization [facility] Address [address] [facility] [place] [address] Phone [phone] Care Team Providers Care Air Crew Supervisor Name Role Phone Froilan Christianson DO Primary Care Provider [phone] Reason for Visit * Reason Comments Return Visit Encounter Details Date Type Department Care Team Description 12/06/2022 [facility] [address] [place] [address] Elva Fox PA-C [address] [place] [address] Normal in third trimester*; Marginal insertion of umbilical cord affecting management of mother; Family history of congenital anomaly Allergies No known active allergiesdocumented as of this encounter (statuses as of 12/06/2022) Medications Medication Sig Dispensed Refills Start Date End Date Status Vitamin/Min +DHA 27-0.8-200 MG Oral Capsule Take by mouth. 0 Active documented as of this encounter (statuses as of 12/06/2022) Active Problems Problem Noted Date Marginal insertion of umbilical cord aff ecting management of mother 09/18/2022 Overview: 3rd trimester growth US Normal 06/26/2022 Family history of congenital anomaly 12/2022 Overview: Son cleft lip Rosacea 05/01/2022 Dyslipidemia 01/09/2022 Estimated Date of Delivery Comme nts Yes 02/05/2023 Based on last me nstrual period of 05/01/2022 (Exact Date) documented as of this encounter (statuses as of 12/06/2022) Resolved Problems Problem Noted Date Resolved Date [...] as of this encounter (statuses as of 12/06/2022) Immunizations Name Administration Dates Next Due COVID-19 [...] Sign Reading Time Taken Comments Blood Pressure 94/52 12/06/2022 11:18 AM EDT Pulse - - Temperature - - Respiratory Rate - - Oxygen Saturation - - Inhaled Oxygen Concentration - - Weight 71.8 kg (158 lb 3.2 oz) 12/06/2022 11:18 AM EDT Height 163.8 cm (5' 4.5") 12/06/2022 11:18 AM ED T Body Mass Index 26.74 12/06/2022 11:18 AM EDT documented in this encounter Progress Notes * Elva Fox PA-C - 12/06/2022 11:36 AM EDT 31w2d Doing well, insomnia up until last night has been improved. Growth today for marginal cord, final report pending. Prelim read: 30th%. MIKE 12.2cm. +FHT 156 bpm by marco. Asking about glucose testing, reviewed passed and no anemia. Counseled on recommendation of flu vaccine, pt desires with next appt -- prefers to get early December. RTC in 2 weeks Elva Fox PA-C documented in this encounter Nursing Notes * Rafaela Ponce LPN - 12/06/2022 11:18 AM EDT 31w2d Growth US today- 30th%. MIKE 12.2cm. Denies concerns. documented in this encounter Plan of Treatment Upcoming Encounters Date Type Specialty Care Team Description 12/22/2022 Office Visit Gynecology Obstetrics Elva Fox PA-C [address] [place] [address] 01/08/2023 Office Visit Gynecology Obstetrics Emma Deras CRNP [address] [place] [address] 01/15/2023 Office Visit Gynecology Obstetrics Emma Deras CRNP [address] [place], [place] [address] 01/22/2023 Office Visit Gynecology Obstetrics Elva Fox PA-C [address] [place] [address] 01/30/2023 Office Visit Gynecology Obstetrics Melvin Santamaria MD [address] [place] [address] 02/05/2023 Office Visit Gynecology Obstetrics Elva Fox PA-C [address] [place] [address] Health Maintenance Due Date Last Done Comments [...] anomalies documented in this encounter Care Teams Air Crew Supervisor Relationship Specialty Start Date End Date Froilan Christianson DO [address] [facility] [place] [address] PCP - General Family Medicine 05/02/22 documented as of this encounter
--- OUTSIDE RECORDS SUMMARY | 2023-02-03 18:05 | External Medical Summary | Summary of Care ---
Author Name Unknown Organization [facility] Address [address] [facility] [place] [address] Phone [phone] Care Team Providers Care Manager Military Name Role Phone Froilan Christianson DO Primary Care Provider Reason for Visit * Reason Comments Return Visit Encounter Details Date Type Department Care Team Description 11/21/2022 Office Visit Gynecology/Obstetrics [facility] [address] [place] [id number] Emma Deras CRNP [address] [place] [id number] Normal in third trimester*; Marginal insertion of umbilical cord affecting management of mother; Family history of congenital anomaly; Need for prophylactic vaccination with combined zgktquewbb-xtxsjtb-gwx tussis (DTP) vaccine Allergies No known active allergiesdocumented as of [...] Sign Reading Time Taken Comments Blood Pressure 98/56 11/21/2022 9:08 AM EDT Pulse - - Temperature - - Respiratory Rate - - Oxygen Saturation - - Inhaled Oxygen Concentration - - Weight 69.4 kg (153 lb) 11/21/2022 9:08 AM EDT Height - - Body Mass Index 25.86 10/20/2022 11:09 AM EDT documented in this encounter Progress Notes * EMILE Rodriguez - 11/21/2022 9:21 AM EDT 29w1d No concerns. Baby moving a lot, which is causing some insomnia in the middle of the night. Denies bleeding, contractions, LOF. Glucola, TDAP today. EMILE Rodriguez * Kiera Bledsoe LPN - 11/21/2022 9:08 AM EDT 29w1d Glucola today Would like tdap documented in this encounter Nursing Notes * Kiera Bledsoe LPN - 11/21/2022 9:32 AM EDT Patient here for tdap injection. Patient doing well no complaints. Injection given IM as ordered. Patient tolerated well. Patient to follow up as directed. Patient instructed to call if any complications. Patient verbalized understanding of instructions given and her follow up appt for 2 weeks Injection site: Left Deltoid Medication Source: Dispensed stock medication documented in this encounter Plan of Treatment Upcoming Encounters Date Type Specialty Care Team Description 12/06/2022 Imaging Radiology 12/06/2022 Office Visit Gynecology Obstetrics Elva Fox PA-C [address] [place] [address] Scheduled Orders Name Type Priority Associated Diagnoses Orde r Schedule US PREG FOLLOW-UP EACH FETUS Medical Imaging Routine Marginal insertion of umbilical cord affecting management of mother Expected: 12/05/2022 (Approximate), Expires: 12/22/2023 Health Maintenance Due Date Last Done Comments [...] of congenital anomalies Need for prophylactic vaccination with combined ircqgnkzqj-nnotxqq-hnkeujzxu (DTP) vaccine documented in this encounter Care Teams Manager Military Relationship Specialty Start Date End Date Froilan Christianson DO [address] [place] [address] PCP - General Family Medicine 05/02/22 documented as of this encounter
--- OUTSIDE RECORDS SUMMARY | 2023-02-03 18:05 | External Medical Summary | Summary of Care ---
Author Name Unknown Organization [facility] Address [address] [place] [address] Phone [phone] Care Team Providers Care Speech Lang Path Therapist Name Role Phone Froilan Christianson DO Primary Care Provider Reason for Visit * Reason Onset Date Comments Referral 09/11/2022 Encounter Details Date Type Department Care Team Description 09/11/2022 Telephone Gynecology/Obstetrics [facility] [address] [place] [id number] Qian Powell, [facility] [address] [place] [address] Referral Allergies No known active allergiesdocumented as of this encounter (statuses as of 09/11/2022) Medications Medication Sig Dispensed Refills Start Date End Date Status Vitamin/Min +DHA 27-0.8-200 MG Oral Capsule Take by mouth. 0 Active Cephalexin 500 MG Oral Capsule Take 1 capsule by mouth once a day for 21 days. 21 Capsule 0 06/24/2022 Active Additional Information Patient not taking.Reported on 07/25/2022 documented as of this encounter (statuses as of 09/11/2022) Active Problems Problem Noted Date Normal 06/26/2022 Family history of congenital anomaly 12/2022 Overview: Son cleft lip Rosacea 05/01/2022 Dyslipidemia 01/09/2022 Estimated Date of Delivery Comme nts Yes 02/05/2023 Based on last me nstrual period of 05/01/2022 (Exact Date) documented as of this encounter (statuses as of 09/11/2022) Resolved Problems Problem Noted Date Resolved Date Placenta succenturiata, unspecified trimester 02/10/2020 Overview: 10/17/19 [...] as of this encounter (statuses as of 09/11/2022) Immunizations Name Administration Dates Next Due COVID-19 mRNA, LNP-s, No Pre serve, 2-Dose Series (Moderna) 07/20/2020,06/22/2020 Covid-19 Mrna, Lnp-s, No Preserve, Booster (Mode rna) 03/22/2021 Seasonal Influenza, Quadriva lent, No Preserve, 6 Mons & Above, IM 01/09/2022,01/02/2018 Seasonal Influenza, Quadrivalent, No Preserve, I M 12/19/2019 TDAP (age 10 and older)(Boostrix) 10/17/2019 documented as of this encounter Social History [...] encounter Miscellaneous Notes * Telephone Encounter - MELISSA Hernandez - 09/11/2022 3:52 PM EDT PT called and stated she did not want to see MFM and wanted to stay in [facility] and have US donethere. Please assist PT. documented in this encounter Plan of Treatment Upcoming Encounters Date Type Specialty Care Team Description 09/21/2022 Office Visit Gynecology Obstetrics Backer, EMILE Rivera [address] [place] [address] Health Maintenance Due Date Last Done Comments Hepatitis B (1 of 3 - 3-dose series) 1989 Depression Screening, Annual for Pts 12 and Over 01/31/2020 01/30/2019 COVID-19 Vaccine (4 - Moderna series) 05/17/2021 03/22/2021, 07/20/2020, 06/22/2020 Pap Smear 09/02/2026 09/02/2021, 01/17, 01/01/2017 DTaP,Tdap,and Td Vaccines (2 - Td or Tdap) 10/16/2029 10/17/2019 Influenza Vaccine (FLU shot) Completed , 12/19/2019, 01/02/2018, Additional history exists Hepatitis C Screening Completed 06/26/2022 , 06/26/2022, [...] filedocumented as of this encounter Care Teams Speech Lang Path Therapist Relationship Specialty Start Date End Date Froilan Christianson DO [address] [place] [address] PCP - General Family Medicine 05/02/22 documented as of this encounter
--- OUTSIDE RECORDS SUMMARY | 2023-02-03 18:05 | External Medical Summary | Summary of Care ---
Author Name Unknown Organization [facility] Address [address] [facility] [address] Phone [phone] Care Team Providers Care Compensation Adjuster Name Role Phone Froilan Christianson DO Primary Care Provider [phone] Encounter Details Date Type Department Care Team Description 10/05/2022 Telephone Gynecology/Obstetrics [facility] [address] [facility] [place] [address] Qian Powell, [place] [address] [facility] [place] [address] Allergies No known active allergiesdocumented as of this encounter (statuses as of 10/10/2022) Medications Medication Sig Dispensed Refills Start Date End Date Status Vitamin/Min +DHA 27-0.8-200 MG Oral Capsule Take by mouth. 0 Active documented as of this encounter (statuses as of 10/10/2022) Active Problems Problem Noted Date Low-lying placenta 09/21/2022 Marginal insertion of umbilical cord aff ecting management of mother 09/18/2022 Overview: 3rd trimester growth US Normal 06/26/2022 Family history of congenital anomaly 12/2022 Overview: Son cleft lip Rosacea 05/01/2022 Dyslipidemia 01/09/2022 Estimated Date of Delivery Comme nts Yes 02/05/2023 Based on last me nstrual period of 05/01/2022 (Exact Date) documented as of this encounter (statuses as of 10/10/2022) Resolved Problems Problem Noted Date Resolved Date [...] as of this encounter (statuses as of 10/10/2022) Immunizations Name Administration Dates Next Due COVID-19 [...] encounter Miscellaneous Notes * Telephone Encounter - Yolanda Lee RN - 10/10/2022 2:41 PM EDT Attempted to call patient. No answer, LVM to return call. * Telephone Encounter - Yolanda Lee RN - 10/05/2022 10:57 AM EDT Attempted to call patient no answer, LVM to return call. * Telephone Encounter - Yolanda Lee RN - 10/05/2022 10:29 AM EDT ----- Message from Qian Powell CNM sent at 10/05/2022 10:15 AM EDT ----- Please let patient know her recent ultrasound showed that the missed anatomy was well demonstrated.She will need a follow up growth US in the third trimester. Her placenta is no longer low lying. Thanks! Qian Powell CNM documented in this encounter Plan of Treatment Upcoming Encounters Date Type Specialty Care Team Description 10/20/2022 Office Visit Gynecology Obstetrics Emma Deras CRNP [address] [facility] [place] [address] Health Maintenance Due Date Last Done Comments Hepatitis B (1 of 3 - 3-dose series) 1990 Depression Screening, Annual for Pts 12 and Over 01/31/2020 01/30/2019 COVID-19 Vaccine (4 - Moderna series) 05/17/2021 03/22/2021, 07/20/2020, 06/22/2020 Influenza Vaccine (FLU shot) (#1) 2022 01/09/2022, 12/19/2019, 01/02/2018, Additional history exists Pap Smear 09/02/2026 09/02/2021, 01/17, 01/01/2017 DTaP,Tdap,and Td Vaccines (2 - Td or Tdap) 10/16/2029 10/17/2019 Hepatitis C Screening Completed 06/26/2022 , [...] filedocumented as of this encounter Care Teams Compensation Adjuster Relationship Specialty Start Date End Date Froilan Christianson DO [address] [place] [address] PCP - General Family Medicine 05/02/22 documented as of this encounter
--- OUTSIDE RECORDS SUMMARY | 2023-02-03 18:05 | External Medical Summary | Summary of Care ---
Author Name Unknown Organization [facility] Address [address] [facility] [place] [address] Phone [phone] Care Team Providers Care School Psychologist Assistant Name Role Phone Froilan Christianson DO Primary Care Provider [phone] Reason for Visit * Reason Onset Date Comments Appointment 08/25/2022 Encounter Details Date Type Department Care Team Description 08/25/2022 Telephone Gynecology/Obstetrics [facility] [address] [place] [address] Christine Lnidsay CRNP [address] [place] [address] Appointment Allergies No known active allergiesdocumented as of this encounter (statuses as of 08/25/2022) Medications Medication Sig Dispensed Refills Start Date End Date Status Vitamin/Min +DHA 27-0.8-200 MG Oral Capsule Take by mouth. 0 Active Cephalexin 500 MG Oral Capsule Take 1 capsule by mouth once a day for 21 days. 21 Capsule 0 06/24/2022 Active Additional Information Patient not taking.Reported on 07/25/2022 documented as of this encounter (statuses as of 08/25/2022) Active Problems Problem Noted Date Normal 06/26/2022 Family history of congenital anomaly 12/2022 Overview: Son cleft lip Rosacea 05/01/2022 Dyslipidemia 01/09/2022 Estimated Date of Delivery Comme nts Yes 02/05/2023 Based on last me nstrual period of 05/01/2022 (Exact Date) documented as of this encounter (statuses as of 08/25/2022) Resolved Problems Problem Noted Date Resolved Date [...] as of this encounter (statuses as of 08/25/2022) Immunizations Name Administration Dates Next Due COVID-19 [...] Telephone Encounter - Libia Brumfield LPN - 08/25/2022 4:19 PM EDT Pt is to see MFM for anatomy US. She will need to call them to get orders placed and scheduled * Telephone Encounter - MELISSA Porter - 08/25/2022 4:03 PM EDT Pt called in she needs an ultrasound order put in her chart, pt is requesting to only be seen for this in [facility] documented in this encounter Plan of Treatment Upcoming Encounters Date Type Specialty Care Team Description 09/21/2022 Office Visit Gynecology Obstetrics Backer, EMILE Rivera [address] [place] [address] Health Maintenance Due Date Last Done Comments [...] filedocumented as of this encounter Care Teams School Psychologist Assistant Relationship Specialty Start Date End Date Froilan Christianson DO [address] [place] [address] PCP - General Family Medicine 05/02/22 documented as of this encounter
--- OUTSIDE RECORDS SUMMARY | 2023-02-03 18:05 | External Medical Summary | Summary of Care ---
Author Name Unknown Organization [facility] Address [address] [place] [address] Phone [phone] Care Team Providers Care Thermite Bomb Loader Name Role Phone Froilan Christianson DO Primary Care Provider [phone] Reason for Referral * Evaluate & Treat - Unlimited Visits (Within 10 days (routine)) - Pending Review Specialty Diagnoses / Procedures Referred By Dominguez lyon Referred To Contact Medical Genetics / Hematology Oncology Diagnoses Family history of cleft lip Sue Jaramillo CRNP [address] [place] [address] Referral ID Status Reason Start Date Expiration Date Visits Requested Visits Authorized [id number] Pending Review Specialty Services Required 08/22/[phone] Question Answer Referral Priority Within 10 days (routine) Is this referral request related to one of the following genetics sub-specialties? If unsure of category, use Medical Genetics Ask-A-Doc. /Preconception Reason for Visit * Reason Onset Date Comments Referral 08/22/2022 NANCY Encounter Details Date Type Department Care Team Description 08/22/2022 Telephone Final Armature Tester Obstetrics [facility] [place] [address] [place] [address] Maranda Nurse Final Armature Tester Mf [address] [place] [address] Referral (NANCY) Allergies No known active allergiesdocumented as of this encounter (statuses as of 08/24/2022) Medications Medication Sig Dispensed Refills Start Date End Date Status Vitamin/Min +DHA 27-0.8-200 MG Oral Capsule Take by mouth. 0 Active Cephalexin 500 MG Oral Capsule Take 1 capsule by mouth once a day for 21 days. 21 Capsule 0 06/24/2022 Active Additional Information Patient not taking.Reported on 07/25/2022 documented as of this encounter (statuses as of 08/24/2022) Active Problems Problem Noted Date Normal 06/26/2022 Family history of congenital anomaly 12/2022 Overview: Son cleft lip Rosacea 05/01/2022 Dyslipidemia 01/09/2022 Estimated Date of Delivery Comme nts Yes 02/05/2023 Based on last me nstrual period of 05/01/2022 (Exact Date) documented as of this encounter (statuses as of 08/24/2022) Resolved Problems Problem Noted Date Resolved Date [...] as of this encounter (statuses as of 08/24/2022) Immunizations Name Administration Dates Next Due COVID-19 [...] Miscellaneous Notes * Telephone Encounter - MELISSA Livingston - 08/24/2022 9:23 AM EDT lmom for pt to call the office back to schedule appointment, [email or web address] message already sent to pt. 2nd attempt * Telephone Encounter - MELISSA Livingston - 08/22/2022 12:33 PM EDT lmom for pt to call the office back to schedule appointment, mychart message also sent to pt * Telephone Encounter - Kaitlin Saha, MED ASSIST - 08/22/2022 10:28 AM EDT Estimated Date of Delivery: 02/05/23 Please schedule for LONG SCAN, in time frame of between 19-21 weeks (09/11/22 to 09/25/22) at [facility] with the indication of hx of prior child with anomaly or genetic problem (son with cleft lip). Genetic referral placed. Referring Provider: Qian Powell CNM documented in this encounter Plan of Treatment Upcoming Encounters Date Type Specialty Care Team Description 09/21/2022 Office Visit Gynecology Obstetrics Backer, EMILE Rivera [address] [place] [address] Scheduled Referrals Name Type Priority Associated Diagnoses Orde r Schedule GENETICS REFERRAL OP Referral Within 10 days (routine) Family history of cleft lip Ordered: 08/22/2022 Health Maintenance Due Date Last Done Comments Hepatitis B (1 of 3 - 3-dose series) 1990 Depression Screening, Annual for Pts 12 and Over 01/31/2020 01/30/2019 COVID-19 Vaccine (4 - Booster for Moderna series) 05/17/2021 03/22/2021, 07/20/2020, 06/22/2020 Pap [...] as of this encounter Visit Diagnoses Diagnosis Family history of cleft lip- Primary Family history of congenital anomalies documented in this encounter Care Teams Thermite Bomb Loader Relationship Specialty Start Date End Date Froilan Christianson DO [address] [place] [address] PCP - General Family Medicine 05/02/22 documented as of this encounter
--- OUTSIDE RECORDS SUMMARY | 2023-02-03 18:05 | External Medical Summary | Summary of Care ---
Author Name Unknown Organization [facility] Address [address] [place] [address] Phone [phone] Care Team Providers Care Respiratory Equipment Assistant Name Role Phone Froilan Christianson DO Primary Care Provider Reason for Visit * Reason Onset Date Comments Referral 09/11/2022 Encounter Details Date Type Department Care Team Description 09/11/2022 Telephone Gynecology/Obstetrics [facility] [address] [place] [address] Qian Powell, [facility] [address] [place] [address] Referral Allergies No known active allergiesdocumented as of this encounter (statuses as of 09/12/2022) Medications Medication Sig Dispensed Refills Start Date End Date Status Vitamin/Min +DHA 27-0.8-200 MG Oral Capsule Take by mouth. 0 Active Cephalexin 500 MG Oral Capsule Take 1 capsule by mouth once a day for 21 days. 21 Capsule 0 06/24/2022 Active Additional Information Patient not taking.Reported on 07/25/2022 documented as of this encounter (statuses as of 09/12/2022) Active Problems Problem Noted Date Normal 06/26/2022 Family history of congenital anomaly 12/2022 Overview: Son cleft lip Rosacea 05/01/2022 Dyslipidemia 01/09/2022 Estimated Date of Delivery Comme nts Yes 02/05/2023 Based on last me nstrual period of 05/01/2022 (Exact Date) documented as of this encounter (statuses as of 09/12/2022) Resolved Problems Problem Noted Date Resolved Date [...] as of this encounter (statuses as of 09/12/2022) Immunizations Name Administration Dates Next Due COVID-19 [...] Telephone Encounter - Yolanda Lee RN - 09/12/2022 11:21 AM EDT Called patient. Made aware that she was referred to [facility] and this is the recommendation by the provider. When seeing [facility], pt to have Anatomy US at [facility], not here. Patient verbalized understanding but states she is DECLINING MFM referral at this time and would like to have her anatomy US at [facility]. Please review and advise/place new order since patient is refusing to have this done at [facility]. Patient will need to be scheduled for this once order is placed. * Telephone Encounter - MELISSA Hernandez - 09/11/2022 3:52 PM EDT PT called and stated she did not want to see [facility] and wanted to stay in [facility] and have US donethere. Please assist PT. documented in this encounter Plan of Treatment Upcoming Encounters Date Type Specialty Care Team Description 09/21/2022 Office Visit Gynecology Obstetrics [place], EMILE Rivera [address] [facility] [place] [address] Health Maintenance Due Date Last Done Comments [...] filedocumented as of this encounter Care Teams Respiratory Equipment Assistant Relationship Specialty Start Date End Date Froilan Christianson DO [address] [place] [address] PCP - General Family Medicine 05/02/22 documented as of this encounter
--- OUTSIDE RECORDS SUMMARY | 2023-02-03 18:05 | External Medical Summary ---
Author Name Unknown Address Unknown Organization [id number]:LAB[facility]ATORY [facility] - [address] [facility] [address] Laboratory Report Ordering Provider Test Date Status JOHANA MCGINNIS 11/21/2022 10:07:14 Final Observation Date Value Abnormality Reference (Units ) Status Treponema pallidum Ab [Presence] in Serum by Immunoassay 11/21/2022 10:07:14 Nonreactive Nonreactive Final No serologic evidence of syp hilis. No additional testing clinicially indicated at this time. Consider repeat testing in 2-4 weeks if acute or primary syphilis is suspected. Performing Location LABORATORY [facility] - [address] [place] [address]
--- OUTSIDE RECORDS SUMMARY | 2023-02-03 18:05 | External Medical Summary ---
Author Name Unknown Address Unknown Organization K01:[facility] - [address] [facility] [address] Laboratory Report Ordering Provider Test Date Status ESTEPHANIE MCGINNISANABELL 11/21/2022 10:07:14 Final Observation Date Value Abnormality Reference (Units ) Status WBC, Total 11/21/2022 10:07:14 9.81 4.00-10.8 0 (K/uL) Final RBC 11/21/2022 10:07:14 4.01 3.85-5.15 (M/uL) Final Hemoglobin 11/21/2022 10:07:14 12.1 12.0-15.3 (g/dL) Final Anemia reflex testing trigge rs on a HGB < 12.0 for Females and HGB < 13.0 for Males in accordance with the WHO Anemia Guidelines
Anemia reflex testing triggers on a HGB < 12.0 for Females and HGB < 13.0 for Males in accordance with the WHO Anemia Guidelines HCT 11/21/2022 10:07:14 37.2 36.0-45.2 (%) Final MCV 11/21/2022 10:07:14 92.8 81.5-97.5 (fL) Final MCH 11/21/2022 10:07:14 30.2 27.0-34.0 (pg) Final MCHC 11/21/2022 10:07:14 32.5 32.0-36.0 (g/dL) Final RDW 11/21/2022 10:07:14 12.5 11.5-15.5 (%) Final Platelets 11/21/2022 10:07:14 191 140-400 (K /uL) Final MPV 11/21/2022 10:07:14 10.5 6.6-11.1 ( fL) Final Nucleated erythrocytes/100 leukocytes [Ratio] in Blood by Automated count 11/21/2022 10:07:14 0 <=0 (/100 WBCs) Fi [facility] Performing Location [facility] - [address] [facility] [address]
--- OUTSIDE RECORDS SUMMARY | 2023-02-03 18:05 | External Medical Summary | Summary of Care ---
Author Name Unknown Organization [facility] Address [address] [facility] [place] [address] Phone [phone] Care Team Providers Care Marine Pipefitter Name Role Phone Froilan Christianson DO Primary Care Provider [phone] Reason for Visit * Reason Comments Return Visit Encounter Details Date Type Department Care Team Description 09/21/2022 Office Visit Gynecology/Obstetrics [facility] [address] [place] [address] Christine Lindsay CRNP [address] [place] [address] Normal in second trimester*; Marginal insertion of umbilical cord affecting management of mother; Family history of congenital anomaly; Low-lying placenta Allergies No known active allergiesdocumented as of this encounter (statuses as of 09/21/2022) Medications Medication Sig Dispensed Refills Start Date End Date Status Vitamin/Min +DHA 27-0.8-200 MG Oral Capsule Take by mouth. 0 Active Cephalexin 500 MG Oral Capsule Take 1 capsule by mouth once a day for 21 days. 21 Capsule 0 06/24/2022 09/21/2022 Discontinued (Medication List Clean Up) documented as of this encounter (statuses as of 09/21/2022) Active Problems Problem Noted Date Low-lying placenta [...] as of this encounter (statuses as of 09/21/2022) Resolved Problems Problem Noted Date Resolved Date [...] as of this encounter (statuses as of 09/21/2022) Immunizations Name Administration Dates Next Due COVID-19 [...] Sign Reading Time Taken Comments Blood Pressure 96/56 09/21/2022 11:29 AM EDT Pulse - - Temperature - - Respiratory Rate - - Oxygen Saturation - - Inhaled Oxygen Concentration - - Weight 66.7 kg (147 lb) 09/21/2022 11:29 AM EDT Height - - Body Mass Index 24.84 08/22/2022 9:45 AM EDT documented in this encounter Progress Notes * EMILE Gregory - 09/21/2022 11:40 AM EDT + movement. No cramping, bleeding. Under pelvic rest due to low lying placenta. Plans to schedule repeat U/S for missed anatomy. Discussed low lying placenta and marginal cord insertion - low lying placenta likely to move, but if persists or previa, C/S recommended. Reviewed recommendation to check growth in 3rd trimester d/t cord insertion. Advised if growth restriction/abnormal doppler flow were detected, this would increase risk of stillbirth and additional monitoring/change in management would be advised. Return in 4 weeks, call sooner with any vaginal bleeding or other concerns. EMILE Quigley documented in this encounter Nursing Notes * Keturah Hinkle LPN - 09/21/2022 11:29 AM EDT 20w3d Denies vaginal bleeding/rom + movement Discuss anatomy US documented in this encounter Plan of Treatment Upcoming Encounters Date Type Specialty Care Team Description 10/03/2022 Imaging Radiology 10/20/2022 Office Visit Gynecology Obstetrics Emma Deras CRNP [address] [place] [address] Health Maintenance Due Date Last Done Comments [...] encounter Visit Diagnoses Diagnosis Normal in second trimester- Primary Marginal insertion of umbilical cord affecting management of mother Family history of congenital anomaly Family history of congenital anomalies Low-lying placenta Hemorrhage from placenta previa, unspecified as to episode of care documented in this encounter Care Teams Marine Pipefitter Relationship Specialty Start Date End Date Froilan Christianson DO [address] [place] [address] PCP - General Family Medicine 05/02/22 documented as of this encounter
--- OUTSIDE RECORDS SUMMARY | 2023-02-03 18:05 | External Medical Summary ---
Author Name Unknown Address Unknown Organization K01:LAB[facility]ATORY [facility] [facility] - [address] [facility] [place] [address] Laboratory Report Ordering Provider Test Date Status JOHANA MCGINNIS 11/21/2022 10:07:14 Final Observation Date Value Abnormality Reference (Units ) Status SYNC LEUKOCYTES IN BLOOD BY AUTOMATED COUNT 11/21/2022 10:07:14 9.81 4.00-10.80 (K/uL) Final Segs 11/21/2022 10:07:14 80.0 Above high normal 40.0-75.0 (%) Final Lymphs % 11/21/2022 10:07:14 12.5 Below low normal 18.0-42.0 (%) Final Monos 11/21/2022 10:07:14 5.8 1.0-11.0 (%) Final Eosinophils 11/21/2022 10:07:14 1.1 0.0-6.0 (%) Final Basos 11/21/2022 10:07:14 0.3 0.0-2.0 (%) Final Immature Granulocyte, Percent 11/21/2022 10:07:14 0.3 0.0-2.0 (%) Final Absolute Segs 11/21/2022 10:07:14 7.84 Above high normal 1.80-7.70 (K/uL) Final Lymphs, absolute 11/21/2022 10:07:14 1.23 1.00-4.80 (K/ul) Final Monos, Abs 11/21/2022 10:07:14 0.57 0.00-1.10 (K/uL) Final Eos, Abs 11/21/2022 10:07:14 0.11 0.00-0.70 (K/uL) Final Basos, Abs 11/21/2022 10:07:14 0.03 0.00-0.20 (K/uL) Final Immature Granulocytes, Number 11/21/2022 10:07:14 0.03 0.00-0.20 (K/uL) Final Performing Location LAB[facility]ATORY [facility] - [facility] [address] [facility] [address]
--- OUTSIDE RECORDS SUMMARY | 2023-02-03 18:05 | External Medical Summary ---
Author Name Unknown Address Unknown Organization K0G:[facility]ORY [facility] - [address] [place] [address] Laboratory Report Ordering Provider Test Date Status JOHANA MCGINNIS 11/21/2022 10:07:14 Final Observation Date Value Abnormality Reference (Units ) Status Glucose [Moles/volume] in Serum or Plasma --1 hour post 50 g glucose PO 11/21/2022 10:07:14 111 70-129 (mg/dL) Final Performing Location LAB[facility]ATORY [facility] [address] - [address] [place] [address]
--- OUTSIDE RECORDS SUMMARY | 2023-02-03 18:05 | External Medical Summary | Summary of Care ---
Author Name Unknown Organization [facility] Address [address] [place] [address] Phone [phone] Care Team Providers Care Ar Manager Name Role Phone Froilan Christianson DO Primary Care Provider [phone] Reason for Referral * Evaluate & Treat - Unlimited Visits (Within 10 days (routine)) - Pending Review Specialty Diagnoses / Procedures Referred By Dominguez lyon Referred To Contact Medical Genetics / Hematology Oncology Diagnoses Family history of cleft lip Sue Jaramillo CRNP [address] [place] [address] Referral ID Status Reason Start Date Expiration Date Visits Requested Visits Authorized [id number] Pending Review Specialty Services Required 08/22/[phone] Question Answer Referral Priority Within 10 days (routine) Is this referral request related to one of the following genetics sub-specialties? If unsure of category, use Medical Genetics Ask-A-Doc. /Preconception Reason for Visit * Reason Onset Date Comments Referral 08/22/2022 NANCY Encounter Details Date Type Department Care Team Description 08/22/2022 Telephone Tone Cabinet Assembler Obstetrics Maternal [facility], [place] [address] [place] [address] Maranda Nurse Tone Cabinet Assembler Mf [address] [place] [address] Referral (NANCY) Allergies No known [...] encounter Miscellaneous Notes * Telephone Encounter - DREW Neil - 09/12/2022 1:46 PM EDT Spoke to the pt about her referral. At this time she is not interested in speaking to a GC. Referral cancelled. Respectfully, Deedee Malone Genetic Counseling Retail Banker Maternal Medicine For further questions call the Genetic Counselor at + . * Telephone Encounter - DREW Neil - 09/05/2022 1:52 PM EDT Attempted to contact the pt about their referral. No answer, left message requesting a call back. MyG sent. Respectfully, Deedee Malone Genetic Counseling Retail Banker Maternal Medicine For further questions call the Genetic Counselor at + . * Telephone Encounter - MELISSA Livingston - 08/25/2022 3:26 PM EDT Phone call from pt, said she is going to have the ultrasound completed through her OB office * Telephone Encounter - MELISSA Livingston - 08/24/2022 9:23 AM EDT lmom for pt to call the office back to schedule appointment, Veridt message already sent to pt. 2nd attempt * Telephone Encounter - MELISSA Livingston - 08/22/2022 12:33 PM EDT lmom for pt to call the office back to schedule appointment, [employer]igos [employer] message also sent to pt * Telephone Encounter - Kaitlin Saha MED ASSIST - 08/22/2022 10:28 AM EDT Estimated Date of Delivery: 02/05/23 Please schedule for LONG SCAN, in time frame of between 19-21 weeks (09/11/22 to 09/25/22) at [facility] with the indication of hx of prior child with anomaly or genetic problem (son with cleft lip). Genetic referral placed. Referring Provider: Qian Powell CNM documented in this encounter Plan of Treatment Upcoming Encounters Date Type Specialty Care Team Description 09/21/2022 Office Visit Gynecology Obstetrics Backer, EMILE Rivera [address] [facility] [place] [address] Scheduled Referrals Name Type Priority Associated Diagnoses [...] anomalies documented in this encounter Care Teams Ar Manager Relationship Specialty Start Date End Date Froilan Christianson DO [address] [place] [address] PCP - General Family Medicine 05/02/22 documented as of this encounter
--- OUTSIDE RECORDS SUMMARY | 2023-02-03 18:05 | External Medical Summary | Summary of Care ---
Author Name Unknown Organization [facility] Address [address] [place] [address] Phone [phone] Care Team Providers Care Stereo Compiler Name Role Phone Froilan Christianson DO Primary Care Provider [phone] Reason for Referral * Evaluate & Treat - Unlimited Visits (Within 10 days (routine)) - Pending Review Specialty Diagnoses / Procedures Referred By Dominguez lyon Referred To Contact Medical Genetics / Hematology Oncology Diagnoses Family history of cleft lip Sue Jaramillo CRNP [address] [place] [address] Referral ID Status Reason Start Date Expiration Date Visits Requested Visits Authorized [id number] Pending Review Specialty Services Required 08/22/[phone] Question Answer Referral Priority Within 10 days (routine) Is this referral request related to one of the following genetics sub-specialties? If unsure of category, use Medical Genetics Ask-A-Doc. /Preconception Reason for Visit * Reason Onset Date Comments Referral 08/22/2022 NANCY Encounter Details Date Type Department Care Team Description 08/22/2022 Telephone Pantographer Obstetrics Maternal Medicine, [place] [address] [place] [address] Maranda Nurse Pantographer Mf [address] [place] [address] Referral (NANCY) Allergies No known [...] call the office back to schedule appointment, Netrounds message already sent to pt. 2nd attempt * Telephone Encounter - MELISSA Livingston - 08/22/2022 12:33 PM EDT lmom for pt to call the office back to schedule appointment, Net[employer] message also sent to pt * Telephone Encounter - Kaitlin Saha, MED ASSIST - 08/22/2022 10:28 AM EDT Estimated Date of Delivery: 02/05/23 Please schedule for LONG SCAN, in time frame of between 19-21 weeks (09/11/22 to 09/25/22) at location [facility] with the indication of hx of prior child with anomaly or genetic problem (son with cleft lip). Genetic referral placed. Referring Provider: Qian Powell CNM documented in this encounter Plan of Treatment Upcoming Encounters Date Type Specialty Care Team Description 09/21/2022 Office Visit Gynecology Obstetrics Backer, EMILE Rivera [address] [place] [address] Scheduled Referrals Name Type Priority Associated Diagnoses [...] anomalies documented in this encounter Care Teams Stereo Compiler Relationship Specialty Start Date End Date Froilan Christianson DO [address] [place] [address] PCP - General Family Medicine 05/02/22 documented as of this encounter
--- OUTSIDE RECORDS SUMMARY | 2023-02-03 18:05 | External Medical Summary | Summary of Care ---
Author Name Unknown Organization [facility] Address [address] [address] Phone [phone] Care Team Providers Care Special Certificate Dictator Name Role Phone rFoilan Christianson DO Primary Care Provider Encounter Details Date Type Department Care Team Description 10/05/2022 Telephone Gynecology/Obstetrics [facility] [address] [facility] [place] [address] Qian Powell, [place] [address] [facility] [place] [address] Allergies No known active allergiesdocumented as of this encounter (statuses as of 10/05/2022) Medications Medication Sig Dispensed Refills Start Date End Date Status Vitamin/Min +DHA 27-0.8-200 MG Oral Capsule Take by mouth. 0 Active documented as of this encounter (statuses as of 10/05/2022) Active Problems Problem Noted Date Low-lying placenta [...] as of this encounter (statuses as of 10/05/2022) Resolved Problems Problem Noted Date Resolved Date [...] as of this encounter (statuses as of 10/05/2022) Immunizations Name Administration Dates Next Due COVID-19 [...] Team Description 10/20/2022 Office Visit Gynecology Obstetrics [place], EMILE Ross [address] [place] [address] Health Maintenance Due Date Last Done Comments [...] filedocumented as of this encounter Care Teams Special Certificate Dictator Relationship Specialty Start Date End Date Froilan Christianson DO [address] [place] [address] PCP - General Family Medicine 05/02/22 documented as of this encounter
--- OUTSIDE RECORDS SUMMARY | 2023-02-03 18:05 | External Medical Summary | Summary of Care ---
Author Name Unknown Organization [facility] Address [address] [facility] [address] Phone [phone] Care Team Providers Care Associate Store Manager Name Role Phone Froilan Christianson DO Primary Care Provider [phone] Encounter Details Date Type Department Care Team Description 10/05/2022 Telephone Gynecology/Obstetrics [facility] [address] [facility] [place] [address] Qian Powell, [place] [address] [facility] [place] [address] Allergies No known active [...] encounter Miscellaneous Notes * Telephone Encounter - Jerrica Taylor RN - 10/10/2022 4:47 PM EDT Pt returned call. Aware of results. * Telephone Encounter - Yolanda Lee RN [...] Obstetrics Emma Deras CRNP [address] [place] [address] Health Maintenance Due Date Last Done Comments [...] filedocumented as of this encounter Care Teams Associate Store Manager Relationship Specialty Start Date End Date Froilan Christianson DO [address] [place] [address] PCP - General Family Medicine 05/02/22 documented as of this encounter
--- OUTSIDE RECORDS SUMMARY | 2023-02-03 18:05 | External Medical Summary | Summary of Care ---
Author Name Unknown Organization [facility] Address [address] [facility] [address] Phone [phone] Care Team Providers Care Wellness Director Name Role Phone Froilan Christianson DO Primary Care Provider [phone] Reason for Referral * Evaluate & Treat - Unlimited Visits (Within 10 days (routine)) - Pending Review Specialty Diagnoses / Procedures Referred By Dominguez lyon Referred To Contact Obstetrics/Gynecology / Maternal Medicine Diagnoses Family history of congenital anomaly Tay Powell CNM [address] [facility] [place] [address] Referral ID Status Reason Start Date Expiration Date Visits Requested Visits Authorized [id number] Pending Review Specialty Services Required 08/22/[phone] Question Answer Referral Priority Within 10 days (routine) Has the patient had a viability scan? Yes Date performed 06/23/2022 Location performed Radiology Reason for referral History of prior child with anomaly or genetic problem Please provide additional details son with cleft lip Comments /Para: LMP: Patient's last menstrual period was 05/01/2022 (exact date). Patient is . IMAN: 02/05/2023, by Last Menstrual Period Pre-Gravid BMI: 22.82 Reason for Visit * Reason Comments Return Visit Encounter Details Date Type Department Care Team Description 08/22/2022 Office Visit Gynecology/Obstetrics [facility] [address] [place] [id number] Tay Powell CNM [address] [place] [address] Normal in second trimester*; Family history of congenital anomaly Allergies No known active allergiesdocumented as of this encounter (statuses as of 08/22/2022) Medications Medication Sig Dispensed Refills Start Date End Date Status Vitamin/Min +DHA 27-0.8-200 MG Oral Capsule Take by mouth. 0 Active Cephalexin 500 MG Oral Capsule Take 1 capsule by mouth once a day for 21 days. 21 Capsule 0 06/24/2022 Active Additional Information Patient not taking.Reported on 07/25/2022 documented as of this encounter (statuses as of 08/22/2022) Active Problems Problem Noted Date Normal 06/26/2022 Family history of congenital anomaly 12/2022 Overview: Son cleft lip Rosacea 05/01/2022 Dyslipidemia 01/09/2022 Estimated Date of Delivery Comme nts Yes 02/05/2023 Based on last me nstrual period of 05/01/2022 (Exact Date) documented as of this encounter (statuses as of 08/22/2022) Resolved Problems Problem Noted Date Resolved Date [...] as of this encounter (statuses as of 08/22/2022) Immunizations Name Administration Dates Next Due COVID-19 [...] Sign Reading Time Taken Comments Blood Pressure 112/58 08/22/2022 9:45 AM EDT Pulse - - Temperature - - Respiratory Rate - - Oxygen Saturation - - Inhaled Oxygen Concentration - - Weight 64.9 kg (143 lb) 08/22/2022 9:45 AM EDT Height 163.8 cm (5' 4.5") 08/22/2022 9:45 AM EDT Body Mass Index 24.17 08/22/2022 9:45 AM EDT documented in this encounter Progress Notes * Tay Powell CNM - 08/22/2022 9:51 AM EDT Mariluz Rock is a 32 year old female here for her routine OB appointment at 16w1d Her Estimated Date of Delivery: 02/05/23 REVIEW OF SYSTEMS: She is unsure if she is feeling movement. Denies vaginal bleeding, LOF, contractions, vision changes, and RUQ pain. Occasional nausea but no vomiting. Also reports cccasional sinus headaches. She has been taking ibuprofen (advil) for relief.In addition, her son has a cleft lip and she is asking if this will be visualized on the anatomy ultrasound. PHYSICAL EXAM: Filed Vitals: 08/22/22 0945 BP: 112/58 Weight: 64.9 kg (143 lb) Height: 1.638 m (5' 4.5") +FHT 140-150 bpm ASSESSMENT/PLAN: (Z82.79) Family history of congenital anomaly Plan: -MFM referral placed due to son with cleft lip. Patient agreeable. (Z34.90) Normal (primary encounter diagnosis) Plan: US PREG SINGLE/1ST GEST, 14 WEEKS OR LATER - anatomy u/s due in 4 weeks, to be scheduled with MFM -Advised patient that ibuprofen (advil) is not safe in . Recommended tylenol for headaches. Patient to notify provider if no relief. - discussed MSAFP and role in detecting open neural tube defects. Patient declined. - RTO in 4 weeks Tay Powell CNM documented in this encounter Nursing Notes * Yolanda Lee RN - 08/22/2022 9:47 AM EDT Patient here for CHAUNCEY 16w1d No bleeding/leaking Some cramping + GEIGER Yolanda Lee RN documented in this encounter Miscellaneous Notes * Addendum Note - Tay Powell CNM - 08/22/2022 10:57 AM EDTAddended by: TAY POWELL on: 08/22/2022 10:57 AM Modules accepted: Orders documented in this encounter Plan of Treatment Upcoming Encounters Date Type Specialty Care Team Description 09/21/2022 Office Visit Gynecology Obstetrics Backer, EMILE Rivera [address] [facility] [place] [address] Scheduled Orders Name Type Priority Associated Diagnoses Orde r Schedule MFM US MATERNAL 1ST FETUS Medical Imaging Routine Family history of congenital anomaly Expected: 08/22/2022, Expires: 09/22/2023 Scheduled Referrals Name Type Priority Associated Diagnoses Orde r Schedule MATERNAL MEDICINE REFERRAL OP Referral Within 10 days (routine) Family history of congenital anomaly Ordered: 08/22/2022 Health Maintenance Due Date Last [...] Diagnoses Diagnosis Normal in second trimester- Primary Family history of congenital anomaly Family history of congenital anomalies documented in this encounter Care Teams Wellness Director Relationship Specialty Start Date End Date Froilan Christianson DO [address] [place] [address] PCP - General Family Medicine 05/02/22 documented as of this encounter
--- OUTSIDE RECORDS SUMMARY | 2023-02-03 18:05 | External Medical Summary | Summary of Care ---
Author Name Unknown Organization [facility] Address [address] [place] [address] Phone [phone] Care Team Providers Care Quality Control Manager Name Role Phone Froilan Christianson DO Primary Care Provider [phone] Reason for Referral * Evaluate & Treat - Unlimited Visits (Within 10 days (routine)) - Pending Review Specialty Diagnoses / Procedures Referred By Dominguez lyon Referred To Contact Medical Genetics / Hematology Oncology Diagnoses Family history of cleft lip Sue Jaramillo CRNP [address] [place] [address] Referral ID Status Reason Start Date Expiration Date Visits Requested Visits Authorized [id number] Pending Review Specialty Services Required 08/22/[phone] Question Answer Referral Priority Within 10 days (routine) Is this referral request related to one of the following genetics sub-specialties? If unsure of category, use Medical Genetics Ask-A-Doc. /Preconception Reason for Visit * Reason Onset Date Comments Referral 08/22/2022 Encounter Details Date Type Department Care Team Description 08/22/2022 Telephone Events Solutions Consultant Obstetrics Maternal Medicine, [place] [address] [place] [address] Nurse Maranda Events Solutions Consultant Mfm [address] [place] [address] Referral Allergies No known active allergiesdocumented as [...] call the office back to schedule appointment, SMRxTt message also sent to pt * Telephone Encounter - ELBA Garcia - 08/22/2022 10:28 AM EDT Estimated Date of Delivery: 02/05/23 Please schedule for LONG SCAN, in time frame of between 19-21 weeks (09/11/22 to 09/25/22) at location [facility] with the indication of hx of prior child with anomaly or genetic problem (son with cleft lip). Genetic referral placed. Referring Provider: Qian Powell CNM documented in this encounter Plan of Treatment Upcoming Encounters Date Type Specialty Care Team Description 09/21/2022 Office Visit Gynecology Obstetrics Backer, EMILE Rivera [address] [facility] [place] [address] Scheduled Referrals Name Type Priority Associated Diagnoses [...] anomalies documented in this encounter Care Teams Quality Control Manager Relationship Specialty Start Date End Date Froilan Christianson DO [address] [place] [address] PCP - General Family Medicine 05/02/22 documented as of this encounter
--- OUTSIDE RECORDS SUMMARY | 2023-02-03 18:05 | External Medical Summary | Summary of Care ---
Author Name Unknown Organization [facility] Address [address] [place] [address] Phone [phone] Care Team Providers Care Hand Slitter Name Role Phone Froilan Christianson DO Primary Care Provider [phone] Reason for Visit * Reason Onset Date Comments Referral 09/11/2022 Encounter Details Date Type Department Care Team Description 09/11/2022 Telephone Gynecology/Obstetrics [facility] [address] [place] [address] Tay Powell, [facility] [address] [place] [address] Referral Allergies No known active allergiesdocumented as of this encounter (statuses as of 09/13/2022) Medications Medication Sig Dispensed Refills Start Date End Date Status Vitamin/Min +DHA 27-0.8-200 MG Oral Capsule Take by mouth. 0 Active Cephalexin 500 MG Oral Capsule Take 1 capsule by mouth once a day for 21 days. 21 Capsule 0 06/24/2022 Active Additional Information Patient not taking.Reported on 07/25/2022 documented as of this encounter (statuses as of 09/13/2022) Active Problems Problem Noted Date Normal 06/26/2022 Family history of congenital anomaly 12/2022 Overview: Son cleft lip Rosacea 05/01/2022 Dyslipidemia 01/09/2022 Estimated Date of Delivery Comme nts Yes 02/05/2023 Based on last me nstrual period of 05/01/2022 (Exact Date) documented as of this encounter (statuses as of 09/13/2022) Resolved Problems Problem Noted Date Resolved Date [...] as of this encounter (statuses as of 09/13/2022) Immunizations Name Administration Dates Next Due COVID-19 [...] * Telephone Encounter - MELISSA Hernandez - 09/13/2022 12:15 PM EDT Apt scheduled; pt aware * Addendum Note - Tay Powell CNM - 09/13/2022 7:50 AM EDTAddended by: TAY POWELL on: 09/13/2022 07:50 AM Modules accepted: Orders * Telephone Encounter - Tay Powell CNM - 09/13/2022 7:50 AM EDT Anatomy ultrasound ordered. Please assist with scheduling. Thanks! Tay Powell CNM * Telephone Encounter - Yolanda Lee RN - 09/12/2022 11:21 AM EDT Called patient. Made aware that she was referred to [facility] and this is the recommendation by the provider. When seeing [facility], pt to have Anatomy US at [facility], not here. Patient verbalized understanding but states she is DECLINING [facility] referral at this time and would like to have her anatomy US at [facility]. Please review and advise/place new order since patient is refusing to have this done at [facility]. Patient will need to be scheduled for this once order is placed. * Telephone Encounter - MELISSA Hernandez - 09/11/2022 3:52 PM EDT PT called and stated she did not want to see [facility] and wanted to stay in [facility] and have US donethere. Please assist PT. documented in this encounter Plan of Treatment Upcoming Encounters Date Type Specialty Care Team Description 09/18/2022 Imaging Radiology 09/21/2022 Office Visit Gynecology Obstetrics Backer, EMILE Rivera [address] [place] [address] Scheduled Orders Name Type Priority Associated Diagnoses Orde r Schedule US PREG SINGLE/1ST GEST, 14 WEEKS OR LATER Medical Imaging Routine Encounter for supervision of normal first in second trimester Expected: 09/13/2022, Expires: 10/14/2023 Health Maintenance Due Date Last Done Comments [...] as of this encounter Visit Diagnoses Diagnosis Encounter for supervision of normal first in second trimester- Primary Supervision of normal first documented in this encounter Care Teams Hand Slitter Relationship Specialty Start Date End Date Froilan Christianson DO [address] [place] [address] PCP - General Family Medicine 05/02/22 documented as of this encounter
--- OUTSIDE RECORDS SUMMARY | 2023-02-03 18:05 | External Medical Summary | Summary of Care ---
Author Name Unknown Organization [facility] Address [address] [place] [address] Phone [phone] Care Team Providers Care Environmental Program Manager Name Role Phone Froilan Christianson DO Primary Care Provider [phone] Encounter Details Date Type Department Care Team Description 10/05/2022 Orders Only Gynecology/Obstetrics [facility] [address] [place] [address] Qian Powell [facility] [address] [place], [place] [id number] Allergies No known active allergiesdocumented as of [...] Gynecology Obstetrics Emma Deras CRNP [address] [place] [address] Health Maintenance Due Date Last Done Comments [...] filedocumented as of this encounter Care Teams Environmental Program Manager Relationship Specialty Start Date End Date Froilan Christianson DO [address] [place] [address] PCP - General Family Medicine 05/02/22 documented as of this encounter
--- OUTSIDE RECORDS SUMMARY | 2023-02-03 18:05 | External Medical Summary | Summary of Care ---
Author Name Unknown Organization [facility] Address [address] [facility] [address] Phone [phone] Care Team Providers Care Distribution Lineman Name Role Phone Froilan Christianson DO Primary Care Provider Encounter Details Date Type Department Care Team Description 09/18/2022 Telephone [facility] Gynecology and Obstetrics [address] [place], [place] [phone] Qian Powell CNM [address] [employer], [place] [phone] Allergies No known active allergiesdocumented as of [...] * Telephone Encounter - MELISSA Hernandez - 09/21/2022 2:56 PM EDT Apt scheduled * Telephone Encounter - MELISSA Hernandez - 09/20/2022 9:33 AM EDT LMOM * Telephone Encounter - Qian Powell CNM - 09/18/2022 5:54 PM EDT Called patient to review her anatomy ultrasound results which show the followin. Growth within normal limits utilizing IMAN from initial scan. 2. Spine, orbits, and kidneys are not well evaluated due to position. Follow-up in 2 weeks. 3. Borderline low lying anterior placenta, attention on follow-up. 4. Marginal placental cord insertion. Recommend follow-up 3rd trimester growth ultrasound. Recommended pelvic rest until confirmed resolution of low lying placenta. Patient denies any vaginal bleeding. Please schedule follow up ultrasound in 2 weeks for the above missed anatomy. Qian Powell CNM 09/18/22 5:59 PM documented in this encounter Plan of Treatment Upcoming Encounters Date Type Specialty Care Team Description 10/03/2022 Imaging Radiology 10/20/2022 Office Visit Gynecology Obstetrics Emma Deras CRNP [address] [place] [address] Scheduled Orders Name Type Priority Associated Diagnoses Orde r Schedule US PREG SINGLE/1ST GEST, 14 WEEKS OR LATER Medical Imaging Routine Normal , second trimester Expected: 10/02/2022, Expires: 10/20/2023 Health Maintenance Due Date Last Done Comments [...] of this encounter Visit Diagnoses Diagnosis Normal , second trimester- Primary Marginal insertion of umbilical cord affecting management of mother documented in this encounter Care Teams Distribution Lineman Relationship Specialty Start Date End Date Froilan Christianson DO [address] [place] [address] PCP - General Family Medicine 05/02/22 documented as of this encounter
--- OUTSIDE RECORDS SUMMARY | 2023-02-03 18:05 | External Medical Summary | Summary of Care ---
Author Name Unknown Organization [facility] Address [address] [facility] [address] Phone [phone] Care Team Providers Care Brand Planner Name Role Phone Froilan Christianson DO Primary Care Provider [phone] Reason for Referral * Evaluate & Treat - Unlimited Visits (Within 10 days (routine)) - Pending Review Specialty Diagnoses / Procedures Referred By Dominguez lyon Referred To Contact Obstetrics/Gynecology / Maternal Medicine Diagnoses Family history of congenital anomaly Tay Powell CNM [address] [place] [address] Referral ID Status Reason Start Date Expiration Date Visits Requested Visits Authorized [id number] Pending Review Specialty Services Required 08/22/2022 999 [...] Care Team Description 08/22/2022 Office Visit Gynecology/Obstetrics [facility] [address] [place] [phone] Tay Powell CNM [address] [place] [address] Normal in second trimester*; Family history of [...] Visit Gynecology Obstetrics Backer, EMILE Rivera [address] [facility] [place] [address] Scheduled Orders Name Type Priority Associated Diagnoses [...] anomalies documented in this encounter Care Teams Brand Planner Relationship Specialty Start Date End Date Froilan Christianson DO [address] [place] [address] PCP - General Family Medicine 05/02/22 documented as of this encounter
--- OUTSIDE RECORDS SUMMARY | 2023-02-03 18:05 | External Medical Summary | Summary of Care ---
Author Name Unknown Organization [facility] Address [address] [facility] [place] [address] Phone [phone] Care Team Providers Care Veterinary Pharmacologist Name Role Phone Froilan Christianson DO Primary Care Provider [phone] Reason for Visit * Reason Comments Return Visit Encounter Details Date Type Department Care Team Description 10/20/2022 Office Visit Gynecology/Obstetrics [facility] [address] [place] [phone] Emma Deras CRNP [address] [place] [phone] Normal in second trimester*; Marginal insertion of umbilical cord affecting management of mother; Family history of congenital anomaly; Low-lying placenta Allergies No known active allergiesdocumented as of this encounter (statuses as of 10/20/2022) Medications Medication Sig Dispensed Refills Start Date End Date Status Vitamin/Min +DHA 27-0.8-200 MG Oral Capsule Take by mouth. 0 Active documented as of this encounter (statuses as of 10/20/2022) Active Problems Problem Noted Date Marginal insertion of umbilical cord aff ecting management of mother 09/18/2022 Overview: 3rd trimester growth US Normal 06/26/2022 Family history of congenital anomaly 12/2022 Overview: Son cleft lip Rosacea 05/01/2022 Dyslipidemia 01/09/2022 Estimated Date of Delivery Comme nts Yes 02/05/2023 Based on last me nstrual period of 05/01/2022 (Exact Date) documented as of this encounter (statuses as of 10/20/2022) Resolved Problems Problem Noted Date Resolved Date [...] as of this encounter (statuses as of 10/20/2022) Immunizations Name Administration Dates Next Due COVID-19 [...] Reading Time Taken Comments Blood Pressure 100/58 10/20/2022 11:09 AM EDT Pulse - - Temperature - - Respiratory Rate - - Oxygen Saturation - - Inhaled Oxygen Concentration - - Weight 67.6 kg (149 lb) 10/20/2022 11:09 AM EDT Height 163.8 cm (5' 4.5") 10/20/2022 11:09 AM ED T Body Mass Index 25.18 10/20/2022 11:09 AM EDT documented in this encounter Progress Notes * EMILE Rodriguez - 10/20/2022 11:23 AM EDT 24w4d Complaints: none Feeling well, just tired. Good FM. No contractions, bleeding, or LOF. Glucola with next visit EMILE Rodriguez documented in this encounter Nursing Notes * Kiera Bledsoe LPN - 10/20/2022 11:08 AM EDT 24w4d documented in this encounter Plan of Treatment Upcoming Encounters Date Type Specialty Care Team Description 11/21/2022 Laboratory Laboratory Sandrine Krishna [address] [place] [address] 11/21/2022 Office Visit Gynecology Obstetrics Emma Deras CRNP [address] [place] [address] Scheduled Orders Name Type Priority Associated Diagnoses Orde r Schedule SYPHILIS ANTIBODY SCREEN WITH REFLEX TO RPR Lab Routine Normal in second trimester Expected: 11/03/2022 (Approximate), Expires: 10/21/2023 CBC WITH WBC DIFFERENTIAL AND ANEMIA REFLEX WORKUP Lab Routine Normal in second trimester Expected: 11/03/2022 (Approximate), Expires: 10/21/2023 50-G GESTATIONAL GLUCOSE, 1 HOUR Lab Routine Normal in second trimester Expected: 11/03/2022 (Approximate), Expires: 10/21/2023 Health Maintenance Due Date Last Done Comments Hepatitis B (1 of 3 - 3-dose series) 1989 HPV/Co-Test 08/04/2019 Depression Screening, Annual for Pts 12 and Over 01/31/2020 01/30/2019 COVID-19 Vaccine (4 - Moderna series) 05/17/2021 03/22/2021, 07/20/2020, 06/22/2020 Influenza Vaccine (FLU shot) (#1) 2022 01/09/2022, 12/19/2019, 01/02/2018, Additional history exists Cervical Cancer Screening 09/02/2024 Pap Smear 09/02/2024 09/02/2021, 01/17, 01/01/2017 DTaP,Tdap,and Td Vaccines (2 [...] care documented in this encounter Care Teams Veterinary Pharmacologist Relationship Specialty Start Date End Date Froilan Christianson DO [address] [place] [address] PCP - General Family Medicine 05/02/22 documented as of this encounter
--- OUTSIDE RECORDS SUMMARY | 2023-02-03 18:05 | External Medical Summary | Summary of Care ---
Author Name Unknown Organization [facility] Address [address] [place] [address] Phone [phone] Care Team Providers Care Capacity Planning Analyst Name Role Phone Froilan Christianson DO Primary Care Provider [phone] Reason for Referral * Evaluate & Treat - Unlimited Visits (Within 10 days (routine)) - Pending Review Specialty Diagnoses / Procedures Referred By Dominguez lyon Referred To Contact Medical Genetics / Hematology Oncology Diagnoses Family history of cleft lip Sue Jaramillo CRNP [address] [place] [address] Referral ID Status Reason Start Date Expiration Date Visits Requested Visits Authorized [id number] Pending Review Specialty Services Required 08/22/2022 999 999 Question Answer Referral Priority Within 10 days (routine) Is this referral request related to one of the following genetics sub-specialties? If unsure of category, use Medical Genetics Ask-A-Doc. /Preconception Reason for Visit * Reason Onset Date Comments Referral 08/22/2022 NANCY Encounter Details Date Type Department Care Team Description 08/22/2022 Telephone Clinical Social Work Therapist Obstetrics Maternal Medicine, [place] [address] [place] [address] Maranda Nurse Clinical Social Work Therapist Mf [address] [place] [address] Referral (NANCY) Allergies No known active allergiesdocumented as of this encounter (statuses as of 09/05/2022) Medications Medication Sig Dispensed Refills Start Date End Date Status Vitamin/Min +DHA 27-0.8-200 MG Oral Capsule Take by mouth. 0 Active Cephalexin 500 MG Oral Capsule Take 1 capsule by mouth once a day for 21 days. 21 Capsule 0 06/24/2022 Active Additional Information Patient not taking.Reported on 07/25/2022 documented as of this encounter (statuses as of 09/05/2022) Active Problems Problem Noted Date Normal 06/26/2022 Family history of congenital anomaly 12/2022 Overview: Son cleft lip Rosacea 05/01/2022 Dyslipidemia 01/09/2022 Estimated Date of Delivery Comme nts Yes 02/05/2023 Based on last me nstrual period of 05/01/2022 (Exact Date) documented as of this encounter (statuses as of 09/05/2022) Resolved Problems Problem Noted Date Resolved Date [...] as of this encounter (statuses as of 09/05/2022) Immunizations Name Administration Dates Next Due COVID-19 [...] MyG sent. Respectfully, Deedee Malone Genetic Counsel[facility] It Desktop Support Specialist Maternal Medicine For further questions call the Genetic Counselor at + . * Telephone Encounter - MELISSA Livingston - 08/25/2022 3:26 PM EDT Phone call from pt, said she is going to have the ultrasound completed through her OB office * Telephone Encounter - MELISSA Livingston - 08/24/2022 9:23 AM EDT lmom for pt to call the office back to schedule appointment, NPC IIIhart message already sent to pt. 2nd attempt [...] 19-21 weeks (09/11/22 to 09/25/22) at location [facility] with the indication of hx of prior child with anomaly or genetic problem (son with cleft lip). Genetic referral placed. Referring Provider: Qian Powell CNM documented in this encounter Plan of Treatment Upcoming Encounters Date Type Specialty Care Team Description 09/21/2022 Office Visit Gynecology Obstetrics Backer, EMILE Rivera [address] [place] [address] Scheduled Referrals Name Type Priority Associated Diagnoses [...] anomalies documented in this encounter Care Teams Capacity Planning Analyst Relationship Specialty Start Date End Date Froilan Christianson DO [address] [place] [address] PCP - General Family Medicine 05/02/22 documented as of this encounter
--- OUTSIDE RECORDS SUMMARY | 2023-02-03 18:05 | External Medical Summary | Summary of Care ---
Author Name Unknown Organization [facility] Address [address] [place] [address] Phone [phone] Care Team Providers Care Note Taker Name Role Phone Froilan Christianson DO Primary Care Provider [phone] Reason for Referral * Evaluate & Treat - Unlimited Visits (Within 10 days (routine)) - Pending Review Specialty Diagnoses / Procedures Referred By Dominguez lyon Referred To Contact Medical Genetics / Hematology Oncology Diagnoses Family history of cleft lip Sue Jaramillo CRNP [address] [place] [address] Referral ID Status Reason Start Date Expiration Date Visits Requested Visits Authorized [id number] Pending Review Specialty Services Required 08/22/[phone] Question Answer Referral Priority Within 10 days (routine) Is this referral request related to one of the following genetics sub-specialties? If unsure of category, use Medical Genetics Ask-A-Doc. /Preconception Reason for Visit * Reason Onset Date Comments Referral 08/22/2022 *NANCY Encounter Details Date Type Department Care Team Description 08/22/2022 Telephone [facility] Obstetrics [facility], [place] [address] [place] [address] Maranda Nurse [facility] [address] [place] [address] Referral (*NANCY) Allergies No known active allergiesdocumented as of this encounter (statuses as of 08/23/2022) Medications Medication Sig Dispensed Refills Start Date End Date Status Vitamin/Min +DHA 27-0.8-200 MG Oral Capsule Take by mouth. 0 Active Cephalexin 500 MG Oral Capsule Take 1 capsule by mouth once a day for 21 days. 21 Capsule 0 06/24/2022 Active Additional Information Patient not taking.Reported on 07/25/2022 documented as of this encounter (statuses as of 08/23/2022) Active Problems Problem Noted Date Normal 06/26/2022 Family history of congenital anomaly 12/2022 Overview: Son cleft lip Rosacea 05/01/2022 Dyslipidemia 01/09/2022 Estimated Date of Delivery Comme nts Yes 02/05/2023 Based on last me nstrual period of 05/01/2022 (Exact Date) documented as of this encounter (statuses as of 08/23/2022) Resolved Problems Problem Noted Date Resolved Date [...] as of this encounter (statuses as of 08/23/2022) Immunizations Name Administration Dates Next Due COVID-19 [...] Miscellaneous Notes * Telephone Encounter - MELISSA Liivngston - 08/22/2022 12:33 PM EDT lmom for pt to call the office back to schedule appointment, [employer] message also sent to pt * Telephone Encounter - ELBA Garcia - 08/22/2022 10:28 AM EDT Estimated Date of Delivery: 02/05/23 Please schedule for LONG SCAN, in time frame of between 19-21 weeks (09/11/22 to 09/25/22) at [facility] with the indication of hx of prior child with anomaly or genetic problem (son with cleft lip). Genetic referral placed. Referring Provider: Qian Powell CNM documented in this encounter Plan of Treatment Upcoming Encounters Date Type Specialty Care Team Description 09/21/2022 Office Visit Gynecology Obstetrics Backer, EMILE Rivera [address] [place] [address] Scheduled Referrals Name Type Priority Associated Diagnoses [...] anomalies documented in this encounter Care Teams Note Taker Relationship Specialty Start Date End Date Froilan Christianson DO [address] [place] [address] PCP - General Family Medicine 05/02/22 documented as of this encounter
--- OUTSIDE RECORDS SUMMARY | 2023-02-03 18:05 | External Medical Summary | Summary of Care ---
Author Name Unknown Organization [facility] Address [address] [place] [address] Phone [phone] Care Team Providers Care Tire Molder Name Role Phone Froilan Christianson DO Primary Care Provider [phone] Reason for Visit * Reason Onset Date Comments Referral 09/11/2022 Encounter Details Date Type Department Care Team Description 09/11/2022 Telephone Gynecology/Obstetrics [facility] [address] [place] [address] Tay Powell, [facility] [address] [place] [address] Referral Allergies No known active [...] as of this encounter Miscellaneous Notes * Addendum Note [...] Made aware that she was referred to [facility] and this is the recommendation by the provider. When seeing [facility], pt to have Anatomy US at [facility], not here. Patient verbalized understanding but states she is DECLINING [facility] referral at this time and would like to have her anatomy US at [facility]. Please review and advise/place new order since patient is refusing to have this done at [facility]. Patient will need to be scheduled for this once order is placed. * Telephone Encounter - MELISSA Hernandez - 09/11/2022 3:52 PM EDT PT called and stated she did not want to see [facility] and wanted to stay in [facility] and have US donethere. Please assist PT. documented in this encounter Plan of Treatment Upcoming Encounters Date Type Specialty Care Team Description 09/21/2022 Office Visit Gynecology Obstetrics Backer, EMILE Rivera [address] [place] [address] Scheduled Orders Name Type Priority Associated Diagnoses [...] first documented in this encounter Care Teams Tire Molder Relationship Specialty Start Date End Date Froilan Christianson DO [address] [place] [address] PCP - General Family Medicine 05/02/22 documented as of this encounter
--- OUTSIDE RECORDS SUMMARY | 2023-02-03 18:05 | External Medical Summary | Summary of Care ---
Author Name Unknown Organization [facility] Address [address] [place] [address] Phone [phone] Care Team Providers Care Ic Designer [employer] Name Role Phone Froilan Christianson DO Primary Care Provider Reason for Visit * Reason Onset Date Comments Referral 09/11/2022 Encounter Details Date Type Department Care Team Description 09/11/2022 Telephone Gynecology/Obstetrics [facility] [address] [place] [address] Tay Powell, [facility] [address] [place] [address] Referral Allergies No known active [...] Made aware that she was referred to [facility] and this is the recommendation by the provider. When seeing [facility], pt to have Anatomy US at [facility], not here. Patient verbalized understanding but states she is DECLINING [facility] referral at this time and would like to have her anatomy US at [facility]. Please review and advise/place new order since patient is refusing to have this done at [facility]. Patient will need to be scheduled for this once order is placed. * Telephone Encounter - MELISSA Hernandez - 09/11/2022 3:52 PM EDT PT called and stated she did not want to see [facility] and wanted to stay in [facility] and have US donethere. Please assist PT. documented in this encounter Plan of Treatment Upcoming Encounters Date Type Specialty Care Team Description 09/21/2022 Office Visit Gynecology Obstetrics Backer, EMILE Rivera [address] [place] [address] Scheduled Orders Name Type Priority Associated Diagnoses [...] first documented in this encounter Care Teams Ic Designer Standard [employer] Relationship Specialty Start Date End Date Froilan Christianson DO [address] [place] [address] PCP - General Family Medicine 05/02/22 documented as of this encounter
[2023-02-03] MEDS ORDERED: bisacodyL 5 MG TABEC PO SCH (20:00)
--- NOTE | 2023-02-05 08:46 | Coding Query ---
CODING QUERY To promote full compliance with coding requirements relating to patient care, provider participation is requested in all cases of weapons officer naval activity uncertainty. Please assist us with the question(s) below: Coding Question(s): The 02/03 Obstetrical Progress Note documents, "Mild COVID symptoms, declines meds", and the H&P documents, "Covid is positive from home test", and there is a positive result in the labwork done on 02/02. Please specify below in your clinical opinion regarding the COVID with mild COVID Symptoms: (x ) COVID-19, with mild symptoms ( ) Other COVID with mild symptoms - Please Specify type of COVID: ( ) COVID with mild symptoms - Unspecified type of COVID Physician's Response(s): Thank you Aurora Min Principal Diagnosis: "that condition established after study, to be chiefly responsible for occasioning the admission of the patient to the hospital for care." Co-Existing Principal Diagnosis: "when two or more diagnoses equally meet the criteria for principal diagnosis as determined by the circumstances of admission, diagnostic work up, and/or therapy provided, and the Alphabetic Index, Tabular List, or another coding guideline does not provide sequencing direction, any one of the diagnoses may be sequenced first." "When the physician has documented what appears to be a current diagnosis in the body of the record, but has not included the diagnosis in the final diagnostic statement, the physician should be asked whether the diagnosis should be added." (Source Coding Clinic 2 QTR90. p3-4) MARK
== END 2023-02-03 12:55 | disposition home or self-care (01) | DRG 805 ==
LOC: OPB 00:32 → 4S1 00:37 → 4E1 09:00